=== PATIENT | female | born 1975 | race African-American/Black ===

== ENCOUNTER 2020-04-07 11:49 | Emergency (ER) | payer MEDICAID ==
[~2020-04-07] VITALS: Ht 160 cm; Wt 111.6 kg
[~2020-04-07 11:49] MED LIST: LISI40TA11; METF-370
[2020-04-07] MEDS ORDERED: cloNIDine HCL 0.1 MG TAB ONE (12:13)
[2020-04-07] MEDS ORDERED: cloNIDine HCL 0.1 MG TAB PO ONE ×2 (12:30→14:15)
[2020-04-07 15:10] VITALS: BP 165/102
== END 2020-04-07 15:22 | disposition home or self-care (01) ==
LOC: ER 11:49
DX: I10 Essential (primary) hypertension (principal); F17.210 Nicotine dependence, cigarettes, uncomplicated; J45.909 Unspecified asthma, uncomplicated; E11.9 Type 2 diabetes mellitus without complications; Z48.01 Encounter for change or removal of surgical wound dressing; Z91.19 Patient's noncompliance with other medical treatment and regimen
CPT/HCPCS: 93005

== ENCOUNTER 2021-04-24 11:20 | Emergency (ER) | payer MEDICAID ==
[~2021-04-24] VITALS: Ht 160 cm; Wt 105.2 kg
[2021-04-24 11:29] VITALS: BP 191/125
[2021-04-24 12:46] LABS: Basophils # (auto) 0.2 10 ^3/uL (0-0.2); Basophils % (auto) 1.3 % (0.0-2.0); Eosinophils # (auto) 0.2 10 ^3/uL (0-0.8); Eosinophils % (auto) 1.3 % (0.0-7.0); Hematocrit 43.7 % (36.0-46.0); Hemoglobin 14.6 g/dL (12.2-16.2); Lymphocytes # (auto) 4.6 10 ^3/uL (0.4-5.4); Lymphocytes % (auto) 38.8 % (10.0-50.0); Mean Corpuscular Hemoglobin 28.2 pg (28.0-32.0); Mean Corpuscular Hgb Conc. 33.4 g/dL (32.0-36.0); Mean Corpuscular Volume 84.3 fL (80.0-100.0); Monocytes # (auto) 0.7 10 ^3/uL (0-1.3); Monocytes % (auto) 6.2 % (0.0-12.0); Neutrophils # (auto) 6.2 10 ^3/uL (1.6-8.6); Neutrophils % (auto) 52.4 % (37.0-80.0); Nucleated Red Blood Cells % 0.2 %; Red Blood Cells 5.18 10^6/uL (4.0-5.20); Red Cell Distribution Width 13.2 % (11.8-14.3); White Blood Cell 11.8 10^3/uL (4.4-10.8)
[2021-04-24 13:06] LABS: Albumin 3.3 g/dL (3.4-5.0); Potassium 3.9 mmol/L (3.5-5.1)
[2021-04-24 13:14] LABS: BUN/Creatinine Ratio 11.4; Bilirubin, Total 0.4 mg/dL (0.2-1.0); Total Protein 7.6 g/dL (6.4-8.2)
== END 2021-04-24 14:42 | disposition home or self-care (01) ==
LOC: ER 11:20
DX: R51.9 Headache, unspecified (principal); I16.0 Hypertensive urgency; I10 Essential (primary) hypertension; E11.65 Type 2 diabetes mellitus with hyperglycemia; J45.909 Unspecified asthma, uncomplicated; F17.210 Nicotine dependence, cigarettes, uncomplicated; F12.10 Cannabis abuse, uncomplicated; E44.1 Mild protein-calorie malnutrition; Z68.41 Body mass index [BMI] 40.0-44.9, adult
CPT/HCPCS: 36415; 70450; 71045; 80053; 85025

== ENCOUNTER 2021-09-28 13:56 | Inpatient (IN) | payer MEDICAID ==
[~2021-09-28] VITALS: Ht 162.6 cm; Wt 100.0 kg
[2021-09-28] MEDS ORDERED: ASPirin 81 mg TAB PO ONE (14:15)
[2021-09-28] MEDS ORDERED: amLODIPine BESYLATE 5 MG TAB PO ONE (14:15)
[2021-09-28 14:38] LABS: Basophils # (auto) 0.1 10 ^3/uL (0-0.2); Basophils % (auto) 1.2 % (0.0-2.0); Eosinophils # (auto) 0.1 10 ^3/uL (0-0.8); Eosinophils % (auto) 0.9 % (0.0-7.0); Hematocrit 39.1 % (36.0-46.0); Hemoglobin 13.4 g/dL (12.2-16.2); Lymphocytes # (auto) 3.5 10 ^3/uL (0.4-5.4); Lymphocytes % (auto) 33.6 % (10.0-50.0); Mean Corpuscular Hemoglobin 28.2 pg (28.0-32.0); Mean Corpuscular Hgb Conc. 34.3 g/dL (32.0-36.0); Mean Corpuscular Volume 82.2 fL (80.0-100.0); Monocytes # (auto) 0.5 10 ^3/uL (0-1.3); Monocytes % (auto) 5.2 % (0.0-12.0); Neutrophils # (auto) 6.2 10 ^3/uL (1.6-8.6); Neutrophils % (auto) 59.1 % (37.0-80.0); Nucleated Red Blood Cells % 0.1 %; Red Blood Cells 4.75 10^6/uL (4.0-5.20); Red Cell Distribution Width 13.4 % (11.8-14.3); White Blood Cell 10.5 10^3/uL (4.4-10.8)
[2021-09-28 14:51] LABS: Albumin 3.3 g/dL (3.4-5.0); Calcium 9.4 mg/dL (8.5-10.1); Potassium 3.9 mmol/L (3.5-5.1)
[2021-09-28 14:54] LABS: BUN/Creatinine Ratio 11.7
[2021-09-28 14:56] LABS: Bilirubin, Total 0.3 mg/dL (0.2-1.0); Total Protein 7.1 g/dL (6.4-8.2)
[2021-09-28] MEDS ORDERED: NITROGLYCERIN 0.4 MG SL TAB SL ONE (15:00)
[2021-09-28] MEDS ORDERED: SODIUM CHLORIDE 0.9% 250 ML IV ONE (15:15)
[2021-09-28] MEDS ORDERED: InsuLIN REG 1unit/0.01ml Soln (100units/ml) IV ONE (15:15)
[2021-09-28] MEDS ORDERED: NITROGLYCERIN 50MG/250ML 250 ML IV ONE (16:00)
[2021-09-28] MEDS ORDERED: LORazepam 0.5 MG TAB PO ONE (16:15)
[2021-09-28 17:17] LABS: Urine Bacteria FEW /hpf (None Seen); Urine Blood Negative /uL (Negative); Urine Specific Gravity 1.026 (1.001-1.035); Urine WBC 1 /hpf (0 - 5)
[2021-09-28] MEDS ORDERED: ACETAMINOPHEN 325 MG TAB PO PRN (21:15)
[2021-09-28] MEDS ORDERED: DEXTROSE (50%) 50ML SYRG IV PRN (21:15)
[2021-09-28] MEDS ORDERED: NITROGLYCERIN 0.4 MG SL TAB SL PRN (21:15)
[2021-09-28] MEDS: NITROGLYCERIN 50MG/250ML 250 ML IV SCH (21:49)
[2021-09-28 22:48] LABS: INR 1.03 (0.9-1.15); Partial Thromboplastin Time 24.4 sec (23.6-33.0)
[2021-09-28] MEDS: METOPROLOL TARTRATE 50 MG TAB PO SCH (23:07)
[2021-09-28] MEDS: ATORVASTATIN 20 MG TAB PO SCH (23:07)
[2021-09-29] VITALS (55 sets, daily range): BP systolic 124–182; BP diastolic 67–113
[2021-09-29] MEDS: InsuLIN REG 1unit/0.01ml Soln (100units/ml) SC SCH ×6 (01:55→22:07)
[2021-09-29] MEDS: ACCU-CHEK COMFORT CURVE STRIP VI SCH ×6 (01:56→22:00)
[2021-09-29] MEDS ORDERED: KETOROLAC TROMETH 30 MG/ML 1ML VIAL IV ONE (03:00)
[2021-09-29] MEDS ORDERED: cloNIDine HCL 0.1 MG TAB PO PRN (03:30)
[2021-09-29 05:31] LABS: Basophils # (auto) 0.1 10 ^3/uL (0-0.2); Basophils % (auto) 1.1 % (0.0-2.0); Eosinophils # (auto) 0.1 10 ^3/uL (0-0.8); Eosinophils % (auto) 0.9 % (0.0-7.0); Hematocrit 38.2 % (36.0-46.0); Hemoglobin 13.2 g/dL (12.2-16.2); Lymphocytes # (auto) 3.9 10 ^3/uL (0.4-5.4); Lymphocytes % (auto) 38.5 % (10.0-50.0); Mean Corpuscular Hemoglobin 28.6 pg (28.0-32.0); Mean Corpuscular Hgb Conc. 34.5 g/dL (32.0-36.0); Mean Corpuscular Volume 82.7 fL (80.0-100.0); Monocytes # (auto) 0.5 10 ^3/uL (0-1.3); Monocytes % (auto) 5.4 % (0.0-12.0); Neutrophils # (auto) 5.5 10 ^3/uL (1.6-8.6); Neutrophils % (auto) 54.1 % (37.0-80.0); Nucleated Red Blood Cells % 0.1 %; Red Blood Cells 4.62 10^6/uL (4.0-5.20); Red Cell Distribution Width 13.5 % (11.8-14.3); White Blood Cell 10.2 10^3/uL (4.4-10.8)
[2021-09-29 05:54] LABS: Calcium 8.9 mg/dL (8.5-10.1); Potassium 3.5 mmol/L (3.5-5.1)
[2021-09-29 05:59] LABS: BUN/Creatinine Ratio 11.8; Bilirubin, Total 0.5 mg/dL (0.2-1.0); Total Protein 6.7 g/dL (6.4-8.2)
[2021-09-29] MEDS ORDERED: LISINOPRIL 20 MG TAB PO SCH (10:00)
[2021-09-29] MEDS ORDERED: ENOXAPARIN SOD 40 MG/0.4 ML SYRINGE SC SCH (10:00)
[2021-09-29] MEDS: METOPROLOL TARTRATE 50 MG TAB PO SCH ×2 (10:39→21:58)
[2021-09-29] MEDS: ASPirin 81 mg TAB PO SCH (10:39)
[2021-09-29] MEDS: PANTOPRAZOLE 40 MG TAB PO SCH (10:40)
[2021-09-29] MEDS: ONDANSETRON HCL 4 MG/2 ML VIAL IV PRN ×2 (10:40→19:00)
[2021-09-29] MEDS: FUROSEMIDE 40 MG TAB PO SCH (10:40)
[2021-09-29] MEDS: MORPHINE SULFATE INJECTION 2 MG/ML SYRG IV PRN ×2 (10:41→19:01)
[2021-09-29] MEDS ORDERED: FUROSEMIDE 20 MG TAB PO SCH (14:30)
[2021-09-29] MEDS ORDERED: POTASSIUM CHL 20 Meq TABLET PO SCH (14:30)
[2021-09-29] MEDS ORDERED: amLODIPine BESYLATE 5 MG TAB PO ONE (14:30)
[2021-09-29 15:08] LABS: Cholesterol 243 mg/dL (< 200); HDL Cholesterol 52 mg/dL (40-59); LDL Cholesterol 173 mg/dL (< 100); Triglycerides 106 mg/dL (< 150)
[2021-09-29] MEDS: POTASSIUM CHL 20 Meq TABLET PO SCH (16:22)
[2021-09-29] MEDS: IBUPROFEN 400 MG TAB PO PRN (16:30)
[2021-09-29] MEDS ORDERED: FURO1TAB31 PO (17:02)
[2021-09-29] MEDS ORDERED: HYDR10TA26 PO (17:02)
[2021-09-29] MEDS ORDERED: POTA10TA51 PO (17:02)
[2021-09-29] MEDS ORDERED: MET50T PO (17:02)
[2021-09-29] MEDS ORDERED: OXYC-113 PO (17:02)
[2021-09-29] MEDS: hydrALAZINE HCL 25 MG TAB PO SCH (21:58)
[2021-09-29] MEDS: ATORVASTATIN 20 MG TAB PO SCH (21:58)
[2021-09-29] MEDS: ENOXAPARIN SOD 100 MG/1 ML SYRINGE SC SCH (21:59)
[2021-09-29] MEDS: oxyCODONE HCL 5MG TAB PO PRN (23:45)
[2021-09-30] VITALS (51 sets, daily range): BP systolic 122–178; BP diastolic 69–118
[2021-09-30] MEDS: InsuLIN REG 1unit/0.01ml Soln (100units/ml) SC SCH ×4 (05:30→18:01)
[2021-09-30] MEDS: ACCU-CHEK COMFORT CURVE STRIP VI SCH ×4 (05:40→17:56)
[2021-09-30] MEDS: NITROGLYCERIN 50MG/250ML 250 ML IV SCH (07:58)
[2021-09-30 08:36] LABS: Basophils # (auto) 0.2 10 ^3/uL (0-0.2); Basophils % (auto) 1.6 % (0.0-2.0); Eosinophils # (auto) 0.1 10 ^3/uL (0-0.8); Hematocrit 36.2 % (36.0-46.0); Hemoglobin 12.2 g/dL (12.2-16.2); Lymphocytes # (auto) 3.1 10 ^3/uL (0.4-5.4); Lymphocytes % (auto) 27.9 % (10.0-50.0); Mean Corpuscular Hemoglobin 28.2 pg (28.0-32.0); Mean Corpuscular Hgb Conc. 33.7 g/dL (32.0-36.0); Mean Corpuscular Volume 83.5 fL (80.0-100.0); Monocytes # (auto) 1.3 10 ^3/uL (0-1.3); Monocytes % (auto) 11.5 % (0.0-12.0); Neutrophils # (auto) 6.4 10 ^3/uL (1.6-8.6); Nucleated Red Blood Cells % 0.1 %; Red Blood Cells 4.34 10^6/uL (4.0-5.20); Red Cell Distribution Width 13.4 % (11.8-14.3); White Blood Cell 11.1 10^3/uL (4.4-10.8)
[2021-09-30 08:49] LABS: BUN/Creatinine Ratio 14.1; Calcium 8.6 mg/dL (8.5-10.1); Potassium 3.7 mmol/L (3.5-5.1)
[2021-09-30] MEDS: oxyCODONE HCL 5MG TAB PO PRN (08:55)
[2021-09-30] MEDS ORDERED: amLODIPine BESYLATE 5 MG TAB PO SCH (10:00)
[2021-09-30] MEDS ORDERED: INSULIN LANTUS (GLARGINE) 1 /0.01ml (100units/ml) SC SCH (10:00)
[2021-09-30] MEDS: METOPROLOL TARTRATE 50 MG TAB PO SCH (10:36)
[2021-09-30] MEDS: PANTOPRAZOLE 40 MG TAB PO SCH (10:37)
[2021-09-30] MEDS: FUROSEMIDE 40 MG TAB PO SCH (10:37)
[2021-09-30] MEDS: POTASSIUM CHL 20 Meq TABLET PO SCH (10:37)
[2021-09-30] MEDS: ENOXAPARIN SOD 100 MG/1 ML SYRINGE SC SCH (10:39)
[2021-09-30] MEDS: ASPirin 81 mg TAB PO SCH (10:39)
[2021-09-30] MEDS: IBUPROFEN 400 MG TAB PO PRN (10:51)
[2021-09-30] MEDS: hydrALAZINE HCL 25 MG TAB PO SCH (11:37)
[2021-09-30] MEDS ORDERED: hydrALAZINE HCL 25 MG TAB PO SCH (15:30)
[2021-09-30] MEDS ORDERED: INSREGI SC (15:31)
[2021-09-30] MEDS ORDERED: POTA-220 PO (15:31)
[2021-09-30] MEDS ORDERED: AML5T PO (15:31)
[2021-09-30] MEDS ORDERED: HYDR25TA87 PO (15:31)
[2021-09-30] MEDS ORDERED: INSLANTI SC (15:31)
[2021-09-30] MEDS ORDERED: ASPI1CHW15 PO (15:31)
[2021-09-30] MEDS ORDERED: ISOS10TA2 PO (15:31)
[2021-09-30] MEDS ORDERED: MET50T PO (15:31)
[2021-09-30] MEDS ORDERED: FURO1TAB31 PO (15:31)
[2021-09-30] MEDS ORDERED: ISOSORBIDE DINITRATE 10 MG TAB PO SCH (18:00)
== END 2021-09-30 19:35 | disposition home or self-care (01) | DRG 190 ==
LOC: ER 13:56 → TELE 21:42 → ICU WEST 09-29 07:40
PROVIDERS: ADMIT Nurse Practitioner; ATTEND Internal Medicine
DX: I21.4 Non-ST elevation (NSTEMI) myocardial infarction (principal); E11.65 Type 2 diabetes mellitus with hyperglycemia; E66.01 Morbid (severe) obesity due to excess calories; F12.90 Cannabis use, unspecified, uncomplicated; F17.210 Nicotine dependence, cigarettes, uncomplicated; I10 Essential (primary) hypertension; I16.1 Hypertensive emergency; F41.9 Anxiety disorder, unspecified; Z20.822 Contact with and (suspected) exposure to COVID-19; I48.0 Paroxysmal atrial fibrillation; J45.909 Unspecified asthma, uncomplicated; Z68.38 Body mass index [BMI] 38.0-38.9, adult; Z91.14 Patient's other noncompliance with medication regimen; Z79.82 Long term (current) use of aspirin; Z88.1 Allergy status to other antibiotic agents
CPT/HCPCS: 36415; 71045; 80048; 80053; 80061; 81001; 82962; 83880; 84484; 85025; 85379; 85610; 85730; 87081; 93005; 93306; 96361; 96365; 96367; 96375; G0378; J1815; J1885; J2405

== ENCOUNTER 2021-10-14 21:53 | Emergency (ER) | payer MEDICAID ==
[~2021-10-14] VITALS: Ht 160 cm; Wt 105.7 kg
[~2021-10-14 21:53] MED LIST changes: +AML5T PO; +ASPI1CHW15 PO; +FURO1TAB31 PO; +HYDR25TA87 PO; +INSLANTI SC; +INSREGI SC; +ISOS10TA2 PO; -LISI40TA11; +MET50T PO; -METF-370; +OXYC-113 PO; +POTA-220 PO
[2021-10-14 22:33] LABS: Basophils # (auto) 0.1 10 ^3/uL (0-0.2); Basophils % (auto) 0.6 % (0.0-2.0); Eosinophils # (auto) 0.2 10 ^3/uL (0-0.8); Eosinophils % (auto) 1.9 % (0.0-7.0); Hematocrit 39.9 % (36.0-46.0); Hemoglobin 13.3 g/dL (12.2-16.2); Lymphocytes # (auto) 3.4 10 ^3/uL (0.4-5.4); Lymphocytes % (auto) 34.9 % (10.0-50.0); Mean Corpuscular Hemoglobin 28.1 pg (28.0-32.0); Mean Corpuscular Hgb Conc. 33.5 g/dL (32.0-36.0); Mean Corpuscular Volume 83.9 fL (80.0-100.0); Monocytes # (auto) 0.6 10 ^3/uL (0-1.3); Monocytes % (auto) 6.3 % (0.0-12.0); Neutrophils # (auto) 5.5 10 ^3/uL (1.6-8.6); Neutrophils % (auto) 56.3 % (37.0-80.0); Nucleated Red Blood Cells % 0.1 %; Red Blood Cells 4.75 10^6/uL (4.0-5.20); Red Cell Distribution Width 13.4 % (11.8-14.3); White Blood Cell 9.7 10^3/uL (4.4-10.8)
[2021-10-14 22:50] LABS: Albumin 3.3 g/dL (3.4-5.0); BUN/Creatinine Ratio 9.8; Calcium 9.5 mg/dL (8.5-10.1); Potassium 3.6 mmol/L (3.5-5.1)
[2021-10-14 22:53] LABS: Bilirubin, Total 0.2 mg/dL (0.2-1.0); Total Protein 7.5 g/dL (6.4-8.2)
[2021-10-15] MEDS ORDERED: IOHEXOL 300 MG/ML 100ML BOTTLE IJ ONE (01:11)
[2021-10-15] MEDS ORDERED: KETOROLAC TROMETH 30 MG/ML 1ML VIAL IV ONE (01:15)
[2021-10-15 05:11] VITALS: BP 153/93
== END 2021-10-15 05:46 | disposition home or self-care (01) ==
LOC: ER 21:53
DX: R51.9 Headache, unspecified (principal); R68.84 Jaw pain; I10 Essential (primary) hypertension; E11.9 Type 2 diabetes mellitus without complications; I48.91 Unspecified atrial fibrillation; J45.909 Unspecified asthma, uncomplicated; F17.210 Nicotine dependence, cigarettes, uncomplicated; Z79.82 Long term (current) use of aspirin; Z79.4 Long term (current) use of insulin; Z79.899 Other long term (current) drug therapy; Z88.8 Allergy status to other drugs, medicaments and biological substances
CPT/HCPCS: 36415; 70491; 80053; 83880; 84484; 85025; 93005; 96374; 99285; J1885; Q9967

== ENCOUNTER 2021-11-20 06:38 | Day surgery (SDC) | payer MEDICAID ==
[~2021-11-20] VITALS: Ht 162.6 cm; Wt 105.7 kg
[~2021-11-20 06:38] MED LIST changes: +ALPR0.25 PO; +CLON0.1T PO; +FLEC1TAB PO; -INSLANTI SC; -INSREGI SC; +INSUINJ37 SC; -OXYC-113 PO
[2021-11-20] MEDS ORDERED: IODIXANOL 320MG/ML 100ML BTL IV ONE (07:27)
[2021-11-20] MEDS ORDERED: LIDOCAINE 2%HCL (LOCAL ANESTH.) INJ 10ml MDV ONE ×2 (07:27→07:58)
[2021-11-20] MEDS ORDERED: ANGIOMAX 250 MG VIAL IV ONE (08:00)
[2021-11-20] MEDS ORDERED: VERAPAMIL 2.5MG/ML INJ 2ML VIAL IV ONE (08:01)
[2021-11-20] MEDS ORDERED: SODIUM CHL 0.9% 0 ML ONE (08:01)
[2021-11-20] MEDS ORDERED: fentaNYL CITRATE 100 MCG/2 ML VL ONE (08:01)
[2021-11-20] MEDS ORDERED: HEPARIN SODIUM (PORCINE) 5000 UNITS/ML 1ML VIAL ONE (08:01)
[2021-11-20] MEDS ORDERED: MIDAZOLAM HCL 2MG/2ML 2ml VIAL (1mg/ml) ONE (08:01)
[2021-11-20] MEDS ORDERED: hydrALAZINE HCL 20 MG/ML VL ONE (08:33)
[2021-11-20] MEDS ORDERED: LABETALOL HCL 5 MG/ML 4ML SYRINGE IV ONE (09:00)
[2021-11-20] MEDS ORDERED: hydrALAZINE HCL 20 MG/ML VL IV ONE (09:15)
[2021-11-20] MEDS ORDERED: HYDROcodone-ACET 10/325MG TAB PO ONE (10:15)
[2021-11-20] MEDS ORDERED: cloNIDine HCL 0.1 MG TAB PO ONE (12:15)
== END 2021-11-20 14:10 | disposition home or self-care (01) ==
LOC: CATH 06:38
PROVIDERS: ATTEND Internal Medicine
DX: R94.39 Abnormal result of other cardiovascular function study (principal); I25.10 Atherosclerotic heart disease of native coronary artery without angina pectoris; I11.0 Hypertensive heart disease with heart failure; I50.9 Heart failure, unspecified; F41.9 Anxiety disorder, unspecified; E78.5 Hyperlipidemia, unspecified; J45.909 Unspecified asthma, uncomplicated; E11.9 Type 2 diabetes mellitus without complications; Z87.891 Personal history of nicotine dependence; Z79.02 Long term (current) use of antithrombotics/antiplatelets; Z79.82 Long term (current) use of aspirin; Z20.822 Contact with and (suspected) exposure to COVID-19
CPT/HCPCS: 93460; C1751; C1769; C1887; C1894; J0360; J1644; J2001; J2250; J3010; J3490; Q9967; U0003; 99152; 99153

== ENCOUNTER 2022-03-25 12:17 | Emergency (ER) | payer MEDICAID, OTHER ==
[~2022-03-25] VITALS: Ht 162.6 cm; Wt 95.0 kg
[2022-03-25 18:02] VITALS: BP 179/102
[2022-03-25] MEDS ORDERED: KETOROLAC TROMETH 60MG/2ML VIAL IM ONE (18:15)
[2022-03-25] MEDS ORDERED: METOPROLOL TARTRATE 50 MG TAB PO ONE (18:45)
== END 2022-03-25 18:58 | disposition home or self-care (01) ==
LOC: EDBD 12:17 → ER 12:17
DX: M79.10 Myalgia, unspecified site (principal); I10 Essential (primary) hypertension; E11.9 Type 2 diabetes mellitus without complications; I48.91 Unspecified atrial fibrillation; J45.909 Unspecified asthma, uncomplicated; F17.210 Nicotine dependence, cigarettes, uncomplicated; Z79.4 Long term (current) use of insulin; Z79.82 Long term (current) use of aspirin; Z79.899 Other long term (current) drug therapy; Z88.8 Allergy status to other drugs, medicaments and biological substances
CPT/HCPCS: 72070; 72100; 73502; 96372; 99284; J1885

== ENCOUNTER 2022-04-17 15:11 | Inpatient (IN) | payer MEDICAID ==
[~2022-04-17] VITALS: Ht 160 cm; Wt 110.0 kg
[2022-04-17 16:37] LABS: Basophils # (auto) 0.1 10 ^3/uL (0-0.2); Eosinophils # (auto) 0.1 10 ^3/uL (0-0.8); Eosinophils % (auto) 1.3 % (0.0-7.0); Hematocrit 41.5 % (36.0-46.0); Hemoglobin 14.2 g/dL (12.2-16.2); Lymphocytes # (auto) 4.3 10 ^3/uL (0.4-5.4); Mean Corpuscular Hemoglobin 27.6 pg (28.0-32.0); Mean Corpuscular Hgb Conc. 34.3 g/dL (32.0-36.0); Mean Corpuscular Volume 80.5 fL (80.0-100.0); Monocytes # (auto) 0.7 10 ^3/uL (0-1.3); Monocytes % (auto) 6.1 % (0.0-12.0); Neutrophils # (auto) 5.5 10 ^3/uL (1.6-8.6); Neutrophils % (auto) 51.6 % (37.0-80.0); Nucleated Red Blood Cells % 0.1 %; Red Blood Cells 5.16 10^6/uL (4.0-5.20); Red Cell Distribution Width 13.7 % (11.8-14.3); White Blood Cell 10.7 10^3/uL (4.4-10.8)
[2022-04-17 16:53] LABS: Albumin 3.4 g/dL (3.4-5.0); Calcium 9.3 mg/dL (8.5-10.1); Potassium 3.9 mmol/L (3.5-5.1)
[2022-04-17 16:56] LABS: BUN/Creatinine Ratio 12.5
[2022-04-17 17:01] LABS: Bilirubin, Total 0.4 mg/dL (0.2-1.0); Total Protein 7.4 g/dL (6.4-8.2)
[2022-04-17 18:27] LABS: Blood Alcohol < 3.0 mg/dL (0-5)
[2022-04-17] MEDS ORDERED: LORazepam 2MG/ML-1ML VIAL IV PRN (19:00)
[2022-04-17] MEDS ORDERED: ALPRAZolam 0.25 MG TAB PO PRN (19:00)
[2022-04-17] MEDS ORDERED: NITROGLYCERIN 0.4 MG SL TAB SL PRN (22:00)
[2022-04-17] MEDS ORDERED: cloNIDine HCL 0.1 MG TAB PO PRN (22:00)
[2022-04-17] MEDS ORDERED: ONDANSETRON HCL 4 MG/2 ML VIAL IV PRN (22:00)
[2022-04-17] MEDS ORDERED: DEXTROSE (50%) 50ML SYRG IV PRN (22:00)
[2022-04-17] MEDS: ACCU-CHEK COMFORT CURVE STRIP VI SCH (23:03)
[2022-04-17] MEDS: InsuLIN REG 1unit/0.01ml Soln (100units/ml) SC SCH (23:03)
[2022-04-17] MEDS: ENOXAPARIN SOD 100 MG/1 ML SYRINGE SC SCH (23:15)
[2022-04-17] MEDS: hydrALAZINE HCL 25 MG TAB PO SCH (23:15)
[2022-04-17] MEDS: MORPHINE SULFATE INJ 2 MG/ml SYRG IV PRN (23:17)
[2022-04-18] MEDS: MORPHINE SULFATE INJ 2 MG/ml SYRG IV PRN (00:51)
[2022-04-18] MEDS: hydrALAZINE HCL 25 MG TAB PO SCH ×3 (05:39→23:01)
[2022-04-18] MEDS: ISOSORBIDE DINITRATE 10 MG TAB PO SCH ×3 (05:40→18:00)
[2022-04-18 06:55] LABS: Basophils # (auto) 0.1 10 ^3/uL (0-0.2); Basophils % (auto) 0.9 % (0.0-2.0); Eosinophils # (auto) 0 10 ^3/uL (0-0.8); Eosinophils % (auto) 0.2 % (0.0-7.0); Hematocrit 40.7 % (36.0-46.0); Lymphocytes # (auto) 2.6 10 ^3/uL (0.4-5.4); Lymphocytes % (auto) 19.2 % (10.0-50.0); Mean Corpuscular Hemoglobin 27.6 pg (28.0-32.0); Mean Corpuscular Hgb Conc. 34.5 g/dL (32.0-36.0); Mean Corpuscular Volume 80.1 fL (80.0-100.0); Monocytes # (auto) 0.4 10 ^3/uL (0-1.3); Neutrophils # (auto) 10.5 10 ^3/uL (1.6-8.6); Neutrophils % (auto) 76.7 % (37.0-80.0); Red Blood Cells 5.08 10^6/uL (4.0-5.20); Red Cell Distribution Width 13.9 % (11.8-14.3); White Blood Cell 13.7 10^3/uL (4.4-10.8)
[2022-04-18] MEDS: ACCU-CHEK COMFORT CURVE STRIP VI SCH ×4 (07:05→23:08)
[2022-04-18] MEDS: InsuLIN REG 1unit/0.01ml Soln (100units/ml) SC SCH ×4 (07:05→23:16)
[2022-04-18 07:31] LABS: Potassium 3.3 mmol/L (3.5-5.1)
[2022-04-18 07:41] LABS: Albumin 3.5 g/dL (3.4-5.0); BUN/Creatinine Ratio 17.9; Bilirubin, Total 0.7 mg/dL (0.2-1.0); Calcium 9.4 mg/dL (8.5-10.1); Total Protein 7.8 g/dL (6.4-8.2)
[2022-04-18] MEDS: ENOXAPARIN SOD 100 MG/1 ML SYRINGE SC SCH ×2 (09:51→23:01)
[2022-04-18] MEDS: PANTOPRAZOLE 40 MG TAB PO SCH (09:52)
[2022-04-18] MEDS: FUROSEMIDE 40 MG TAB PO SCH (09:52)
[2022-04-18] MEDS: ASPirin 81 mg TAB PO SCH (09:52)
[2022-04-18] MEDS: amLODIPine BESYLATE 5 MG TAB PO SCH (09:52)
[2022-04-18] MEDS: ATORVASTATIN 20 MG TAB PO SCH (09:53)
[2022-04-18 20:45] LABS: Alcohol, Urine < 3.0 mg/dL (0-10); Amphetamine Screen, Urine NEGATIVE (NEGATIVE); Benzodiazephine Screen, Urine NEGATIVE (NEGATIVE); Cannabinoid Screen, Urine POSITIVE (NEGATIVE); Cocaine Screen, Urine NEGATIVE (NEGATIVE); Opiate Scree,Urine NEGATIVE (NEGATIVE); Phencyclidine Screen, Urine NEGATIVE (NEGATIVE)
[2022-04-18 21:00] LABS: Urine Bacteria FEW /hpf (None Seen); Urine Hyaline Cast FEW /lpf (0 - 2); Urine WBC 1 /hpf (0 - 5)
[2022-04-18 21:04] LABS: Urine Specific Gravity 1.015 (1.001-1.035)
[2022-04-18 21:05] LABS: Urine Blood Negative /uL (Negative)
[2022-04-18 21:14] LABS: Barbiturate Scree,Urine NEGATIVE (NEGATIVE)
[2022-04-18 21:39] VITALS: BP 139/85
[2022-04-18] MEDS ORDERED: QUET1TAB11 PO (22:01)
[2022-04-18] MEDS ORDERED: SERT50TA19 PO (22:01)
[2022-04-18] MEDS ORDERED: HYDR-3682 PO (22:02)
[2022-04-18] MEDS ORDERED: KETOROLAC TROMETH 30 MG/ML 1ML VIAL IV ONE (22:30)
[2022-04-19 05:00] VITALS: BP 138/77
[2022-04-19] MEDS: ISOSORBIDE DINITRATE 10 MG TAB PO SCH ×3 (06:26→18:11)
[2022-04-19] MEDS: hydrALAZINE HCL 25 MG TAB PO SCH ×3 (06:27→21:28)
[2022-04-19] MEDS: ACCU-CHEK COMFORT CURVE STRIP VI SCH ×4 (06:34→21:35)
[2022-04-19] MEDS: InsuLIN REG 1unit/0.01ml Soln (100units/ml) SC SCH ×4 (06:35→21:42)
[2022-04-19 09:05] VITALS: BP 137/87
[2022-04-19] MEDS: ASPirin 81 mg TAB PO SCH (09:23)
[2022-04-19] MEDS: FUROSEMIDE 40 MG TAB PO SCH (09:24)
[2022-04-19] MEDS: ATORVASTATIN 20 MG TAB PO SCH (09:25)
[2022-04-19] MEDS: PANTOPRAZOLE 40 MG TAB PO SCH (09:25)
[2022-04-19] MEDS: amLODIPine BESYLATE 5 MG TAB PO SCH (09:25)
[2022-04-19] MEDS: ENOXAPARIN SOD 100 MG/1 ML SYRINGE SC SCH ×2 (09:26→21:28)
[2022-04-19 13:00] VITALS: BP 154/92
[2022-04-19] MEDS ORDERED: HYDROcodone-ACET 5/325MG TAB PO PRN (16:00)
[2022-04-19 16:11] VITALS: BP 158/86
[2022-04-19] MEDS: traMADol HCL 50 MG TAB PO PRN (20:50)
[2022-04-19 22:00] VITALS: BP 165/91
[2022-04-20 02:48] LABS: INR 0.95 (0.9-1.15); Partial Thromboplastin Time 29.5 sec (24.6-33.4)
[2022-04-20 05:00] VITALS: BP 164/86
[2022-04-20] MEDS: hydrALAZINE HCL 25 MG TAB PO SCH ×3 (06:17→21:58)
[2022-04-20] MEDS: ISOSORBIDE DINITRATE 10 MG TAB PO SCH ×3 (06:19→18:12)
[2022-04-20] MEDS: ACCU-CHEK COMFORT CURVE STRIP VI SCH ×4 (06:22→21:58)
[2022-04-20] MEDS: InsuLIN REG 1unit/0.01ml Soln (100units/ml) SC SCH ×4 (06:28→22:02)
[2022-04-20 09:00] VITALS: BP 169/89
[2022-04-20] MEDS: ASPirin 81 mg TAB PO SCH (09:18)
[2022-04-20] MEDS: ATORVASTATIN 20 MG TAB PO SCH (09:19)
[2022-04-20] MEDS: FUROSEMIDE 40 MG TAB PO SCH (09:19)
[2022-04-20] MEDS: amLODIPine BESYLATE 5 MG TAB PO SCH (09:19)
[2022-04-20] MEDS: PANTOPRAZOLE 40 MG TAB PO SCH (09:19)
[2022-04-20] MEDS: ENOXAPARIN SOD 100 MG/1 ML SYRINGE SC SCH ×2 (09:20→21:58)
[2022-04-20] MEDS: traMADol HCL 50 MG TAB PO PRN ×2 (10:03→22:10)
[2022-04-20] MEDS ORDERED: LIDOCAINE VISCOUS 2% 15ML UD MT ONE (10:45)
[2022-04-20] MEDS ORDERED: fentaNYL CITRATE 100 MCG/2 ML VL IV ONE (10:45)
[2022-04-20] MEDS ORDERED: MIDAZOLAM HCL 2MG/2ML 2ml VIAL (1mg/ml) IV ONE (10:45)
[2022-04-20] MEDS ORDERED: diphenhdrAMINE HCL 50 MG/1 ML VL IV ONE (10:45)
[2022-04-20] MEDS ORDERED: hydrALAZINE HCL 20 MG/ML VL IV ONE (12:30)
[2022-04-20 16:52] VITALS: BP 154/79
[2022-04-20 20:10] VITALS: BP 150/77
[2022-04-21] MEDS: hydrALAZINE HCL 25 MG TAB PO SCH ×2 (05:34→14:05)
[2022-04-21] MEDS: ISOSORBIDE DINITRATE 10 MG TAB PO SCH ×3 (05:34→18:00)
[2022-04-21 05:55] VITALS: BP 169/95
[2022-04-21] MEDS: ACCU-CHEK COMFORT CURVE STRIP VI SCH ×3 (06:21→17:00)
[2022-04-21] MEDS: InsuLIN REG 1unit/0.01ml Soln (100units/ml) SC SCH ×3 (06:23→17:00)
[2022-04-21 09:00] VITALS: BP 147/94
[2022-04-21] MEDS: ASPirin 81 mg TAB PO SCH (10:06)
[2022-04-21] MEDS: ATORVASTATIN 20 MG TAB PO SCH (10:06)
[2022-04-21] MEDS: FUROSEMIDE 40 MG TAB PO SCH (10:06)
[2022-04-21] MEDS: amLODIPine BESYLATE 5 MG TAB PO SCH (10:06)
[2022-04-21] MEDS: PANTOPRAZOLE 40 MG TAB PO SCH (10:06)
[2022-04-21] MEDS: ENOXAPARIN SOD 100 MG/1 ML SYRINGE SC SCH (10:07)
[2022-04-21] MEDS: traMADol HCL 50 MG TAB PO PRN (10:54)
[2022-04-21] MEDS ORDERED: APIX5TAB PO (11:03)
[2022-04-21] MEDS ORDERED: ATOR20TA50 PO (11:04)
[2022-04-21] MEDS ORDERED: DOCUSATE SOD 100 MG CAP PO PRN (11:15)
[2022-04-21] MEDS ORDERED: SENNA 8.6 MG TAB PO ONE (11:15)
[2022-04-21] MEDS ORDERED: LORazepam 2MG/ML-1ML VIAL IV PRN (11:15)
[2022-04-21 13:00] VITALS: BP 180/105
[2022-04-21 15:39] VITALS: BP 153/109
[2022-04-21] MEDS ORDERED: APIXABAN 5 MG TAB PO SCH (19:00)
== END 2022-04-21 18:10 | disposition home health service (06) | DRG 45 ==
LOC: ER 15:11 → TELE 21:58 → TELE-CENTR 04-18 20:47
PROVIDERS: ADMIT Nurse Practitioner; ATTEND Internal Medicine
PROC: B24BZZ4 Ultrasonography of Heart with Aorta, Transesophageal (ICD-10-PCS; principal; 2022-04-20)
DX: I63.9 Cerebral infarction, unspecified (principal); I11.0 Hypertensive heart disease with heart failure; I50.32 Chronic diastolic (congestive) heart failure; E11.65 Type 2 diabetes mellitus with hyperglycemia; E66.01 Morbid (severe) obesity due to excess calories; R29.810 Facial weakness; F41.9 Anxiety disorder, unspecified; E78.5 Hyperlipidemia, unspecified; F17.210 Nicotine dependence, cigarettes, uncomplicated; Z20.822 Contact with and (suspected) exposure to COVID-19; I25.10 Atherosclerotic heart disease of native coronary artery without angina pectoris; I48.91 Unspecified atrial fibrillation; J45.909 Unspecified asthma, uncomplicated; Z68.41 Body mass index [BMI] 40.0-44.9, adult; Z88.1 Allergy status to other antibiotic agents; Z88.8 Allergy status to other drugs, medicaments and biological substances; Z79.01 Long term (current) use of anticoagulants; Z79.4 Long term (current) use of insulin; Z79.899 Other long term (current) drug therapy; Z82.49 Family history of ischemic heart disease and other diseases of the circulatory system; Z83.3 Family history of diabetes mellitus; Z86.73 Personal history of transient ischemic attack (TIA), and cerebral infarction without residual deficits; Z90.710 Acquired absence of both cervix and uterus; Z71.3 Dietary counseling and surveillance
CPT/HCPCS: 36415; 70450; 70551; 80053; 80307; 80320; 81001; 82962; 83036; 83735; 84484; 84702; 85025; 85610; 85730; 87426; 93005; 93306; 93312; 93886; 96372; 96374; 96375; 97163; 99152; G0378; J1815; J1885; J2250

== ENCOUNTER 2022-08-07 13:37 | Inpatient (IN) | payer MEDICAID ==
[~2022-08-07] VITALS: Ht 162.6 cm; Wt 117.5 kg
[~2022-08-07 13:37] MED LIST changes: +APIX5TAB PO; +ATOR20TA50 PO; +HYDR-3682 PO; +QUET1TAB11 PO; +SERT50TA19 PO
[2022-08-07] MEDS ORDERED: LORazepam 2MG/ML-1ML VIAL IV ONE (14:00)
[2022-08-07 14:15] LABS: Basophils # (auto) 0.1 10 ^3/uL (0-0.2); Basophils % (auto) 1.2 % (0.0-2.0); Eosinophils # (auto) 0.1 10 ^3/uL (0-0.8); Eosinophils % (auto) 1.3 % (0.0-7.0); Hematocrit 40.1 % (36.0-46.0); Hemoglobin 13.2 g/dL (12.2-16.2); Lymphocytes # (auto) 3.1 10 ^3/uL (0.4-5.4); Lymphocytes % (auto) 34.8 % (10.0-50.0); Mean Corpuscular Hemoglobin 27.7 pg (28.0-32.0); Mean Corpuscular Hgb Conc. 32.9 g/dL (32.0-36.0); Mean Corpuscular Volume 84.2 fL (80.0-100.0); Monocytes # (auto) 0.6 10 ^3/uL (0-1.3); Monocytes % (auto) 7.1 % (0.0-12.0); Neutrophils % (auto) 55.6 % (37.0-80.0); Nucleated Red Blood Cells % 0.1 %; Red Blood Cells 4.76 10^6/uL (4.0-5.20); Red Cell Distribution Width 14.3 % (11.8-14.3)
[2022-08-07 14:31] LABS: Albumin 3.3 g/dL (3.4-5.0); Calcium 9.1 mg/dL (8.5-10.1); Magnesium 2.1 mg/dL (1.6-2.6); Potassium 3.8 mmol/L (3.5-5.1)
[2022-08-07 14:40] LABS: BUN/Creatinine Ratio 8.4; Bilirubin, Total 0.2 mg/dL (0.2-1.0); Total Protein 6.8 g/dL (6.4-8.2)
[2022-08-07] MEDS ORDERED: ENOXAPARIN SOD 100 MG/1 ML SYRINGE SC ONE (16:00)
[2022-08-07] MEDS ORDERED: NITROGLYCERIN 0.4 MG SL TAB SL PRN (18:00)
[2022-08-07] MEDS ORDERED: ACETAMINOPHEN 325 MG TAB PO PRN (18:00)
[2022-08-07] MEDS ORDERED: MORPHINE SULFATE INJ 2 MG/ml SYRG IV PRN (18:00)
[2022-08-07] MEDS ORDERED: HYDROcodone-ACET 5/325MG TAB PO PRN (18:00)
[2022-08-07] MEDS ORDERED: ONDANSETRON HCL 4 MG/2 ML VIAL IV PRN (18:00)
[2022-08-07] MEDS: MORPHINE SULFATE INJ 2 MG/ml SYRG IV PRN (18:48)
[2022-08-08] VITALS (10 sets, daily range): BP systolic 115–167; BP diastolic 76–113
[2022-08-08] MEDS: ATORVASTATIN 20 MG TAB PO SCH ×2 (01:19→22:41)
[2022-08-08] MEDS: MORPHINE SULFATE INJ 2 MG/ml SYRG IV PRN ×3 (01:59→22:42)
[2022-08-08 03:41] LABS: Urine Bacteria NONE SEEN /hpf (None Seen); Urine Blood Negative /uL (Negative); Urine Specific Gravity 1.013 (1.001-1.035); Urine WBC 1 /hpf (0 - 5)
[2022-08-08] MEDS ORDERED: ENOXAPARIN SOD 120 MG/0.8 ML SYRINGE SC SCH (05:00)
[2022-08-08] MEDS ORDERED: DEXTROSE (50%) 50ML SYRG IV PRN ×2 (06:00→07:15)
[2022-08-08] MEDS: hydrALAZINE HCL 10 MG TAB PO PRN ×2 (06:10→12:18)
[2022-08-08] MEDS ORDERED: InsuLIN REG 1unit/0.01ml Soln (100units/ml) SC SCH ×2 (07:00→22:00)
[2022-08-08] MEDS ORDERED: ACCU-CHEK COMFORT CURVE STRIP VI SCH (07:00)
[2022-08-08] MEDS: ACCU-CHEK COMFORT CURVE STRIP VI SCH ×4 (07:14→22:00)
[2022-08-08] MEDS: InsuLIN REG 1unit/0.01ml Soln (100units/ml) SC SCH ×4 (07:14→22:59)
[2022-08-08 07:36] LABS: Basophils # (auto) 0.1 10 ^3/uL (0-0.2); Basophils % (auto) 0.7 % (0.0-2.0); Eosinophils # (auto) 0.2 10 ^3/uL (0-0.8); Eosinophils % (auto) 1.9 % (0.0-7.0); Hematocrit 39.5 % (36.0-46.0); Hemoglobin 13.6 g/dL (12.2-16.2); Lymphocytes # (auto) 5.3 10 ^3/uL (0.4-5.4); Lymphocytes % (auto) 49.5 % (10.0-50.0); Mean Corpuscular Hgb Conc. 34.3 g/dL (32.0-36.0); Mean Corpuscular Volume 81.5 fL (80.0-100.0); Monocytes # (auto) 0.6 10 ^3/uL (0-1.3); Monocytes % (auto) 5.9 % (0.0-12.0); Neutrophils # (auto) 4.5 10 ^3/uL (1.6-8.6); Nucleated Red Blood Cells % 0.6 %; Red Blood Cells 4.85 10^6/uL (4.0-5.20); Red Cell Distribution Width 14.6 % (11.8-14.3); White Blood Cell 10.8 10^3/uL (4.4-10.8)
[2022-08-08 07:57] LABS: Calcium 8.6 mg/dL (8.5-10.1); Potassium 3.2 mmol/L (3.5-5.1)
[2022-08-08 08:01] LABS: BUN/Creatinine Ratio 12.3; Bilirubin, Total 0.4 mg/dL (0.2-1.0); Total Protein 6.7 g/dL (6.4-8.2)
[2022-08-08] MEDS: ASPirin 81 mg TAB PO SCH (09:41)
[2022-08-08] MEDS: APIXABAN 5 MG TAB PO SCH (22:42)
[2022-08-08] MEDS: cloNIDine HCL 0.1 MG TAB PO SCH (22:42)
[2022-08-08] MEDS: MUPIROCIN 2% OINT 15gm or 22gm FOR MRSA NARES EACHNOSTRI SCH (22:43)
[2022-08-08] MEDS: METOPROLOL TARTRATE 25 MG TAB PO SCH (22:44)
[2022-08-08] MEDS ORDERED: DOCUSATE SOD 100 MG CAP PO PRN (22:45)
[2022-08-08] MEDS ORDERED: ALBUTEROL SULF 2.5 MG/0.5ML(0.5%) NEB SOLN NEB PRN (22:45)
[2022-08-09] MEDS: hydrALAZINE HCL 10 MG TAB PO PRN ×2 (00:26→08:28)
[2022-08-09 05:00] VITALS: BP 117/57
[2022-08-09] MEDS: MORPHINE SULFATE INJ 2 MG/ml SYRG IV PRN ×2 (05:12→14:57)
[2022-08-09] MEDS: InsuLIN REG 1unit/0.01ml Soln (100units/ml) SC SCH ×3 (06:04→16:55)
[2022-08-09] MEDS: ACCU-CHEK COMFORT CURVE STRIP VI SCH ×3 (06:10→16:55)
[2022-08-09 08:00] VITALS: BP 164/94
[2022-08-09 09:51] LABS: Hepatitis B Surface Antibody Positive (Negative)
[2022-08-09] MEDS: ASPirin 81 mg TAB PO SCH (10:52)
[2022-08-09] MEDS: cloNIDine HCL 0.1 MG TAB PO SCH (10:53)
[2022-08-09] MEDS: METOPROLOL TARTRATE 25 MG TAB PO SCH (10:53)
[2022-08-09] MEDS: APIXABAN 5 MG TAB PO SCH (10:53)
[2022-08-09] MEDS: MUPIROCIN 2% OINT 15gm or 22gm FOR MRSA NARES EACHNOSTRI SCH (10:54)
[2022-08-09 11:51] LABS: Hepatitis C Antibody Negative (Negative)
[2022-08-09 12:00] VITALS: BP 157/88
[2022-08-09 16:00] VITALS: BP 132/80
[2022-08-09 16:14] VITALS: BP 132/80
== END 2022-08-09 19:40 | disposition home or self-care (01) | DRG 198 ==
LOC: ER 13:37 → EDBD 13:37 → TELE 18:07 → TELE-EAST 23:31
PROVIDERS: ADMIT Internal Medicine; ATTEND Internal Medicine
DX: R07.9 Chest pain, unspecified (principal); I25.10 Atherosclerotic heart disease of native coronary artery without angina pectoris; E11.9 Type 2 diabetes mellitus without complications; E66.9 Obesity, unspecified; I10 Essential (primary) hypertension; Z68.41 Body mass index [BMI] 40.0-44.9, adult; F41.9 Anxiety disorder, unspecified; F17.210 Nicotine dependence, cigarettes, uncomplicated; I48.91 Unspecified atrial fibrillation; J45.909 Unspecified asthma, uncomplicated; Z81.8 Family history of other mental and behavioral disorders; Z83.3 Family history of diabetes mellitus; Z86.73 Personal history of transient ischemic attack (TIA), and cerebral infarction without residual deficits; Z90.710 Acquired absence of both cervix and uterus; Z88.8 Allergy status to other drugs, medicaments and biological substances
CPT/HCPCS: 36415; 71045; 80053; 81001; 82010; 82962; 83036; 83735; 84484; 85025; 86706; 86803; 87081; 87426; 93005; 93306; 96372; 96374; G0378; J1815

== ENCOUNTER 2022-09-29 00:51 | Inpatient (IN) | payer MEDICAID ==
[~2022-09-29] VITALS: Ht 162.6 cm; Wt 115.7 kg
[~2022-09-29 00:51] MED LIST changes: -ALPR0.25 PO; -AML5T PO; -CLON0.1T PO; -FLEC1TAB PO; -FURO1TAB31 PO; -HYDR-3682 PO; -HYDR25TA87 PO; -ISOS10TA2 PO; -POTA-220 PO; -QUET1TAB11 PO; -SERT50TA19 PO
[2022-09-29 01:57] LABS: Basophils # (auto) 0 10 ^3/uL (0-0.2); Basophils % (auto) 0.6 % (0.0-2.0); Eosinophils # (auto) 0.1 10 ^3/uL (0-0.8); Eosinophils % (auto) 1.2 % (0.0-7.0); Hematocrit 39.7 % (36.0-46.0); Hemoglobin 13.3 g/dL (12.2-16.2); Lymphocytes # (auto) 3.2 10 ^3/uL (0.4-5.4); Lymphocytes % (auto) 38.6 % (10.0-50.0); Mean Corpuscular Hemoglobin 27.1 pg (28.0-32.0); Mean Corpuscular Hgb Conc. 33.5 g/dL (32.0-36.0); Mean Corpuscular Volume 80.7 fL (80.0-100.0); Monocytes # (auto) 0.6 10 ^3/uL (0-1.3); Monocytes % (auto) 7.3 % (0.0-12.0); Neutrophils # (auto) 4.3 10 ^3/uL (1.6-8.6); Neutrophils % (auto) 52.3 % (37.0-80.0); Nucleated Red Blood Cells % 0.1 %; Red Blood Cells 4.91 10^6/uL (4.0-5.20); Red Cell Distribution Width 13.8 % (11.8-14.3); White Blood Cell 8.2 10^3/uL (4.4-10.8)
[2022-09-29 02:11] LABS: INR 0.97 (0.9-1.15); Partial Thromboplastin Time 25.1 sec (24.6-33.4)
[2022-09-29 02:26] LABS: Potassium 3.8 mmol/L (3.5-5.1)
[2022-09-29 02:29] LABS: Bilirubin, Total 0.3 mg/dL (0.2-1.0); Total Protein 7.2 g/dL (6.4-8.2)
[2022-09-29 02:30] LABS: BUN/Creatinine Ratio 11.6 (10.0-20.0)
[2022-09-29] MEDS ORDERED: MORPHINE SULFATE 4 MG/ML SYR/VIAL IV ONE (03:15)
[2022-09-29] MEDS ORDERED: ONDANSETRON HCL 4 MG/2 ML VIAL IV ONE (03:15)
[2022-09-29] MEDS ORDERED: InsuLIN REG 1unit/0.01ml Soln (100units/ml) IV ONE (03:45)
[2022-09-29] MEDS ORDERED: LACTATED RINGER'S 1,000 ML IV ONE (03:45)
[2022-09-29] MEDS ORDERED: HEPARIN DRIP/D5W 100UNITS/ML 250 ML IV SCH (03:45)
[2022-09-29] MEDS ORDERED: HEPARIN SODIUM (PORCINE) 5000 UNITS/ML 1ML VIAL IV ONE (03:45)
[2022-09-29] MEDS ORDERED: DOCUSATE SOD 100 MG CAP PO PRN (05:00)
[2022-09-29] MEDS ORDERED: HYDROcodone-ACET 5/325MG TAB PO PRN (05:00)
[2022-09-29] MEDS ORDERED: DEXTROSE (50%) 50ML SYRG IV PRN (05:00)
[2022-09-29] MEDS ORDERED: MORPHINE SULFATE INJ 2 MG/ml SYRG IV PRN (05:00)
[2022-09-29] MEDS ORDERED: NITROGLYCERIN 0.4 MG SL TAB SL PRN (05:00)
[2022-09-29] MEDS ORDERED: ACETAMINOPHEN 325 MG TAB PO PRN (05:00)
[2022-09-29 05:06] LABS: Basophils # (auto) 0.1 10 ^3/uL (0-0.2); Basophils % (auto) 0.7 % (0.0-2.0); Eosinophils # (auto) 0.1 10 ^3/uL (0-0.8); Eosinophils % (auto) 1.2 % (0.0-7.0); Hematocrit 39.5 % (36.0-46.0); Hemoglobin 13.1 g/dL (12.2-16.2); Lymphocytes # (auto) 3.7 10 ^3/uL (0.4-5.4); Lymphocytes % (auto) 42.6 % (10.0-50.0); Mean Corpuscular Hemoglobin 27.2 pg (28.0-32.0); Mean Corpuscular Volume 82.5 fL (80.0-100.0); Monocytes # (auto) 0.5 10 ^3/uL (0-1.3); Monocytes % (auto) 5.9 % (0.0-12.0); Neutrophils # (auto) 4.3 10 ^3/uL (1.6-8.6); Neutrophils % (auto) 49.6 % (37.0-80.0); Nucleated Red Blood Cells % 0.2 %; Red Cell Distribution Width 13.5 % (11.8-14.3); White Blood Cell 8.6 10^3/uL (4.4-10.8)
[2022-09-29 05:14] LABS: Albumin 2.9 g/dL (3.4-5.0); Calcium 8.8 mg/dL (8.5-10.1); Potassium 4.4 mmol/L (3.5-5.1)
[2022-09-29 05:22] LABS: Bilirubin, Total 0.3 mg/dL (0.2-1.0); Total Protein 6.5 g/dL (6.4-8.2)
[2022-09-29 06:43] LABS: BUN/Creatinine Ratio 16.7 (10.0-20.0)
[2022-09-29] MEDS: SODIUM CHLORIDE 0.9% 1,000 ML IV SCH ×2 (07:11→23:22)
[2022-09-29] MEDS: MORPHINE SULFATE INJ 2 MG/ml SYRG IV PRN ×2 (08:10→20:33)
[2022-09-29] MEDS: ONDANSETRON HCL 4 MG/2 ML VIAL IV PRN ×2 (08:11→20:32)
[2022-09-29] MEDS: InsuLIN REG 1unit/0.01ml Soln (100units/ml) SC SCH ×5 (08:14→23:29)
[2022-09-29] MEDS: ACCU-CHEK COMFORT CURVE STRIP VI SCH ×5 (08:14→23:23)
[2022-09-29 08:35] LABS: Basophils # (auto) 0.1 10 ^3/uL (0-0.2); Basophils % (auto) 1.3 % (0.0-2.0); Eosinophils # (auto) 0.1 10 ^3/uL (0-0.8); Eosinophils % (auto) 1.4 % (0.0-7.0); Hemoglobin 12.9 g/dL (12.2-16.2); Lymphocytes # (auto) 4.3 10 ^3/uL (0.4-5.4); Lymphocytes % (auto) 47.3 % (10.0-50.0); Mean Corpuscular Hemoglobin 27.2 pg (28.0-32.0); Mean Corpuscular Hgb Conc. 33.9 g/dL (32.0-36.0); Mean Corpuscular Volume 80.2 fL (80.0-100.0); Monocytes # (auto) 0.6 10 ^3/uL (0-1.3); Monocytes % (auto) 6.2 % (0.0-12.0); Neutrophils % (auto) 43.8 % (37.0-80.0); Nucleated Red Blood Cells % 0.1 %; Red Blood Cells 4.74 10^6/uL (4.0-5.20); Red Cell Distribution Width 13.3 % (11.8-14.3); White Blood Cell 9.1 10^3/uL (4.4-10.8)
[2022-09-29 08:48] LABS: INR 0.96 (0.9-1.15); Partial Thromboplastin Time 24.9 sec (24.6-33.4)
[2022-09-29] MEDS: ASPirin 81 mg TAB PO SCH (10:12)
[2022-09-29] MEDS: FAMOTIDINE (10MG/ML) 2ML VL IV SCH (10:12)
[2022-09-29] MEDS: APIXABAN 5 MG TAB PO SCH (18:00)
[2022-09-29] MEDS ORDERED: ATORVASTATIN 20 MG TAB PO SCH (22:00)
[2022-09-29] MEDS ORDERED: hydrALAZINE HCL 20 MG/ML VL IV PRN (23:00)
[2022-09-30] MEDS: MORPHINE SULFATE INJ 2 MG/ml SYRG IV PRN ×2 (02:04→08:18)
[2022-09-30 02:31] VITALS: BP 155/101
[2022-09-30] MEDS: InsuLIN REG 1unit/0.01ml Soln (100units/ml) SC SCH ×3 (04:00→11:49)
[2022-09-30] MEDS: ACCU-CHEK COMFORT CURVE STRIP VI SCH ×3 (04:06→11:47)
[2022-09-30] MEDS ORDERED: SERT-160 PO (04:11)
[2022-09-30] MEDS ORDERED: QUET1TAB11 PO (04:11)
[2022-09-30 05:00] VITALS: BP 155/96
[2022-09-30] MEDS: APIXABAN 5 MG TAB PO SCH (06:27)
[2022-09-30 06:54] LABS: Basophils # (auto) 0.1 10 ^3/uL (0-0.2); Basophils % (auto) 0.7 % (0.0-2.0); Eosinophils # (auto) 0.2 10 ^3/uL (0-0.8); Hemoglobin 12.8 g/dL (12.2-16.2); Lymphocytes # (auto) 3.7 10 ^3/uL (0.4-5.4); White Blood Cell 8.5 10^3/uL (4.4-10.8)
[2022-09-30 07:02] LABS: Hematocrit 37.7 % (36.0-46.0); Lymphocytes % (auto) 42.9 % (10.0-50.0); Mean Corpuscular Hgb Conc. 34.1 g/dL (32.0-36.0); Mean Corpuscular Volume 79.2 fL (80.0-100.0); Monocytes # (auto) 0.5 10 ^3/uL (0-1.3); Monocytes % (auto) 5.6 % (0.0-12.0); Neutrophils # (auto) 4.2 10 ^3/uL (1.6-8.6); Neutrophils % (auto) 48.8 % (37.0-80.0); Nucleated Red Blood Cells % 0.1 %; Red Blood Cells 4.75 10^6/uL (4.0-5.20); Red Cell Distribution Width 13.3 % (11.8-14.3)
[2022-09-30 07:31] LABS: Potassium 3.7 mmol/L (3.5-5.1)
[2022-09-30 07:36] LABS: Albumin 2.7 g/dL (3.4-5.0); BUN/Creatinine Ratio 12.9 (10.0-20.0); Bilirubin, Total 0.3 mg/dL (0.2-1.0); Total Protein 6.3 g/dL (6.4-8.2)
[2022-09-30 08:50] VITALS: BP 157/99
[2022-09-30] MEDS: FAMOTIDINE (10MG/ML) 2ML VL IV SCH (09:43)
[2022-09-30] MEDS: ASPirin 81 mg TAB PO SCH (09:43)
[2022-09-30] MEDS ORDERED: CLON0.1T PO (09:45)
[2022-09-30 13:00] VITALS: BP 173/118
[2022-09-30 13:27] VITALS: BP 143/82
[2022-09-30] MEDS ORDERED: MUPI2OIN2 EX (15:02)
[2022-09-30] MEDS ORDERED: MUPIROCIN 2% OINT 15gm or 22gm TOP ONE (15:15)
[2022-09-30 15:54] VITALS: BP 143/82
[2022-09-30] MEDS ORDERED: MUPIROCIN 2% OINT 15gm or 22gm FOR MRSA NARES EACHNOSTRI SCH (22:00)
== END 2022-09-30 17:16 | disposition home or self-care (01) | DRG 190 ==
LOC: ER 00:51 → EDBD 00:51 → TELE 04:47 → TELE-WESTW 23:48
PROVIDERS: ADMIT Nurse Practitioner Family; ATTEND Nurse Practitioner Family
DX: R07.89 Other chest pain (principal); I21.A1 Myocardial infarction type 2; E87.1 Hypo-osmolality and hyponatremia; E11.65 Type 2 diabetes mellitus with hyperglycemia; I11.0 Hypertensive heart disease with heart failure; I25.10 Atherosclerotic heart disease of native coronary artery without angina pectoris; I48.0 Paroxysmal atrial fibrillation; I50.22 Chronic systolic (congestive) heart failure; F41.9 Anxiety disorder, unspecified; F17.210 Nicotine dependence, cigarettes, uncomplicated; J45.909 Unspecified asthma, uncomplicated; Z80.9 Family history of malignant neoplasm, unspecified; Z81.8 Family history of other mental and behavioral disorders; Z79.01 Long term (current) use of anticoagulants; Z82.49 Family history of ischemic heart disease and other diseases of the circulatory system; Z83.3 Family history of diabetes mellitus; Z86.73 Personal history of transient ischemic attack (TIA), and cerebral infarction without residual deficits; Z88.6 Allergy status to analgesic agent; Z90.710 Acquired absence of both cervix and uterus
CPT/HCPCS: 36415; 71045; 80053; 82962; 83735; 83880; 84484; 85025; 85610; 85730; 87081; 93005; 96361; 96365; 96375; 96376; G0378; J1815; J2405; J3490

== ENCOUNTER 2022-10-31 14:57 | Inpatient (IN) | payer MEDICAID ==
[~2022-10-31] VITALS: Ht 170.2 cm; Wt 109.1 kg
[~2022-10-31 14:57] MED LIST changes: +CLON0.1T PO; +MUPI2OIN2 EX; +QUET1TAB11 PO; +SERT-160 PO
[2022-10-31] MEDS ORDERED: FUROSEMIDE 40 MG/4 ML VIAL IV ONE (16:00)
[2022-10-31] MEDS ORDERED: NITROGLYCERIN 2% OINT 1GM PKG TD ONE ×2 (16:00→19:00)
[2022-10-31] MEDS ORDERED: ASPirin 325 MG TAB PO ONE ×2 (16:00→19:00)
[2022-10-31 16:34] LABS: Albumin 3.6 g/dL (3.4-5.0); Calcium 9.2 mg/dL (8.5-10.1); Potassium 3.6 mmol/L (3.5-5.1)
[2022-10-31 16:35] LABS: INR 0.97 (0.9-1.15); Partial Thromboplastin Time 27.4 sec (24.6-33.4)
[2022-10-31 16:37] LABS: BUN/Creatinine Ratio 11.7 (10.0-20.0); Bilirubin, Total 0.6 mg/dL (0.2-1.0); Total Protein 7.9 g/dL (6.4-8.2)
[2022-10-31 16:41] LABS: Basophils # (auto) 0.1 10 ^3/uL (0-0.2); Basophils % (auto) 0.6 % (0.0-2.0); Eosinophils # (auto) 0.1 10 ^3/uL (0-0.8); Eosinophils % (auto) 1.2 % (0.0-7.0); Hemoglobin 14.3 g/dL (12.2-16.2); Lymphocytes # (auto) 4.2 10 ^3/uL (0.4-5.4); Lymphocytes % (auto) 43.2 % (10.0-50.0); Mean Corpuscular Hemoglobin 26.9 pg (28.0-32.0); Mean Corpuscular Hgb Conc. 33.3 g/dL (32.0-36.0); Mean Corpuscular Volume 80.8 fL (80.0-100.0); Monocytes # (auto) 0.6 10 ^3/uL (0-1.3); Monocytes % (auto) 5.9 % (0.0-12.0); Neutrophils # (auto) 4.8 10 ^3/uL (1.6-8.6); Neutrophils % (auto) 49.1 % (37.0-80.0); Nucleated Red Blood Cells % 0.2 %; Red Blood Cells 5.33 10^6/uL (4.0-5.20); Red Cell Distribution Width 13.6 % (11.8-14.3); White Blood Cell 9.8 10^3/uL (4.4-10.8)
[2022-10-31 19:22] LABS: Urine Bacteria NONE SEEN /hpf (None Seen); Urine Blood Negative /uL (Negative); Urine Hyaline Cast FEW /lpf (0 - 2); Urine WBC 3 /hpf (0 - 5)
[2022-10-31] MEDS ORDERED: ONDANSETRON HCL 4 MG/2 ML VIAL IV ONE (19:45)
[2022-10-31] MEDS ORDERED: MORPHINE SULFATE INJ 2 MG/ml SYRG IV ONE (19:45)
[2022-10-31] MEDS ORDERED: NITROGLYCERIN 0.4 MG SL TAB SL PRN (20:30)
[2022-10-31] MEDS ORDERED: DEXTROSE (50%) 50ML SYRG IV PRN (20:30)
[2022-10-31] MEDS ORDERED: ONDANSETRON HCL 4 MG/2 ML VIAL IV PRN (20:30)
[2022-10-31] MEDS ORDERED: ACETAMINOPHEN 325 MG TAB PO PRN (20:30)
[2022-10-31] MEDS ORDERED: IBUPROFEN 600 MG TAB PO ONE (21:30)
[2022-10-31] MEDS: ACCU-CHEK COMFORT CURVE STRIP VI SCH (21:34)
[2022-10-31] MEDS: ATORVASTATIN 20 MG TAB PO SCH (21:44)
[2022-10-31] MEDS: APIXABAN 5 MG TAB PO SCH (21:45)
[2022-10-31] MEDS: METOPROLOL TARTRATE 50 MG TAB PO SCH (21:45)
[2022-10-31] MEDS: cloNIDine HCL 0.1 MG TAB PO SCH (21:45)
[2022-10-31] MEDS: InsuLIN REG 1unit/0.01ml Soln (100units/ml) SC SCH (21:47)
[2022-11-01] VITALS (8 sets, daily range): BP systolic 97–137; BP diastolic 53–84
[2022-11-01 02:45] LABS: Urine Bacteria NONE SEEN /hpf (None Seen); Urine Blood Negative /uL (Negative); Urine Specific Gravity 1.011 (1.001-1.035); Urine WBC 1 /hpf (0 - 5)
[2022-11-01 06:18] LABS: Basophils # (auto) 0.1 10 ^3/uL (0-0.2); Basophils % (auto) 0.7 % (0.0-2.0); Eosinophils # (auto) 0.1 10 ^3/uL (0-0.8); Eosinophils % (auto) 1.7 % (0.0-7.0); Hematocrit 38.5 % (36.0-46.0); Hemoglobin 12.9 g/dL (12.2-16.2); Lymphocytes # (auto) 3.5 10 ^3/uL (0.4-5.4); Lymphocytes % (auto) 41.2 % (10.0-50.0); Mean Corpuscular Hemoglobin 27.1 pg (28.0-32.0); Mean Corpuscular Hgb Conc. 33.4 g/dL (32.0-36.0); Mean Corpuscular Volume 80.9 fL (80.0-100.0); Monocytes # (auto) 0.6 10 ^3/uL (0-1.3); Monocytes % (auto) 7.4 % (0.0-12.0); Neutrophils # (auto) 4.2 10 ^3/uL (1.6-8.6); Nucleated Red Blood Cells % 0.1 %; Red Blood Cells 4.76 10^6/uL (4.0-5.20); Red Cell Distribution Width 13.5 % (11.8-14.3); White Blood Cell 8.6 10^3/uL (4.4-10.8)
[2022-11-01] MEDS: ACCU-CHEK COMFORT CURVE STRIP VI SCH ×4 (06:31→22:22)
[2022-11-01 06:40] LABS: BUN/Creatinine Ratio 14.5 (10.0-20.0); Calcium 9.3 mg/dL (8.5-10.1); Potassium 3.6 mmol/L (3.5-5.1)
[2022-11-01] MEDS: InsuLIN REG 1unit/0.01ml Soln (100units/ml) SC SCH ×4 (06:44→22:47)
[2022-11-01] MEDS: cloNIDine HCL 0.1 MG TAB PO SCH ×2 (09:41→22:19)
[2022-11-01] MEDS: ASPirin 81 mg TAB PO SCH (09:41)
[2022-11-01] MEDS: SERTRALINE HCL 50 MG TAB PO SCH (09:42)
[2022-11-01] MEDS: APIXABAN 5 MG TAB PO SCH (09:42)
[2022-11-01] MEDS: METOPROLOL TARTRATE 50 MG TAB PO SCH ×2 (09:42→22:20)
[2022-11-01] MEDS: PANTOPRAZOLE 40 MG TAB PO SCH (09:42)
[2022-11-01] MEDS ORDERED: IOHEXOL 350 MG/ML 100ML IJ ONE (12:26)
[2022-11-01 13:38] LABS: Hepatitis C Antibody Negative (Negative)
[2022-11-01 14:09] LABS: Amphetamine Screen, Urine NEGATIVE (NEGATIVE); Barbiturate Scree,Urine NEGATIVE (NEGATIVE); Benzodiazephine Screen, Urine NEGATIVE (NEGATIVE); Cannabinoid Screen, Urine NEGATIVE (NEGATIVE)
[2022-11-01 14:26] LABS: Alcohol, Urine < 3.0 mg/dL (0-10); Cocaine Screen, Urine NEGATIVE (NEGATIVE); Opiate Scree,Urine NEGATIVE (NEGATIVE); Phencyclidine Screen, Urine NEGATIVE (NEGATIVE)
[2022-11-01] MEDS: SODIUM CHLORIDE 0.9% 1,000 ML IV SCH (17:05)
[2022-11-01] MEDS: ATORVASTATIN 20 MG TAB PO SCH (22:20)
[2022-11-01] MEDS: RANOLAZINE ER 500 MG TAB PO SCH (22:21)
[2022-11-01] MEDS: INSULIN LANTUS (GLARGINE) 1 /0.01ml (100units/ml) SC SCH (22:48)
[2022-11-02] VITALS (9 sets, daily range): BP systolic 103–165; BP diastolic 54–104
[2022-11-02] MEDS: MORPHINE SULFATE INJ 2 MG/ml SYRG IV PRN (02:00)
[2022-11-02] MEDS: SODIUM CHLORIDE 0.9% 1,000 ML IV SCH ×2 (03:35→16:55)
[2022-11-02] MEDS: ACCU-CHEK COMFORT CURVE STRIP VI SCH ×4 (06:34→21:41)
[2022-11-02] MEDS: InsuLIN REG 1unit/0.01ml Soln (100units/ml) SC SCH ×4 (06:51→21:44)
[2022-11-02 07:56] LABS: BUN/Creatinine Ratio 17.6 (10.0-20.0); Calcium 8.7 mg/dL (8.5-10.1); Potassium 3.9 mmol/L (3.5-5.1)
[2022-11-02] MEDS: SERTRALINE HCL 50 MG TAB PO SCH (10:00)
[2022-11-02] MEDS: METOPROLOL TARTRATE 50 MG TAB PO SCH ×2 (10:00→21:31)
[2022-11-02] MEDS: cloNIDine HCL 0.1 MG TAB PO SCH ×2 (10:00→21:30)
[2022-11-02] MEDS: PANTOPRAZOLE 40 MG TAB PO SCH (10:00)
[2022-11-02] MEDS: RANOLAZINE ER 500 MG TAB PO SCH ×2 (10:00→21:32)
[2022-11-02] MEDS: ASPirin 81 mg TAB PO SCH (10:46)
[2022-11-02] MEDS ORDERED: LIDOCAINE 2%HCL (LOCAL ANESTH.) INJ 20ML MDV ONE (14:41)
[2022-11-02] MEDS ORDERED: IODIXANOL 320MG/ML 100ML BTL IV ONE ×2 (14:41→15:51)
[2022-11-02] MEDS ORDERED: fentaNYL CITRATE 100 MCG/2 ML VL ONE (15:07)
[2022-11-02] MEDS ORDERED: ANGIOMAX 250 MG VIAL IV ONE ×2 (15:07→15:41)
[2022-11-02] MEDS ORDERED: VERAPAMIL 2.5MG/ML INJ 2ML VIAL IV ONE (15:07)
[2022-11-02] MEDS ORDERED: HEPARIN SODIUM (PORCINE) 5000 UNITS/ML 1ML VIAL ONE (15:07)
[2022-11-02] MEDS ORDERED: MIDAZOLAM HCL 2MG/2ML 2ml VIAL (1mg/ml) ONE (15:07)
[2022-11-02] MEDS ORDERED: SODIUM CHL 0.9% 50 ML ONE ×2 (15:08→15:41)
[2022-11-02] MEDS ORDERED: ATROPINE SULF 1 MG/10ml SYR ONE ×2 (15:23→15:59)
[2022-11-02] MEDS ORDERED: EPINEPHrine HCL 1 MG/10 ML SYRG ONE ×2 (15:23→15:59)
[2022-11-02] MEDS ORDERED: TICAGRELOR 90 MG TAB ONE (15:46)
[2022-11-02] MEDS: ATORVASTATIN 20 MG TAB PO SCH (21:31)
[2022-11-02] MEDS: INSULIN LANTUS (GLARGINE) 1 /0.01ml (100units/ml) SC SCH (21:45)
[2022-11-03] VITALS (9 sets, daily range): BP systolic 120–153; BP diastolic 63–86
[2022-11-03] MEDS: ACCU-CHEK COMFORT CURVE STRIP VI SCH ×4 (06:14→21:39)
[2022-11-03] MEDS: SODIUM CHLORIDE 0.9% 1,000 ML IV SCH ×2 (06:15→21:18)
[2022-11-03] MEDS: InsuLIN REG 1unit/0.01ml Soln (100units/ml) SC SCH ×4 (06:28→21:29)
[2022-11-03] MEDS ORDERED: CLOPIDOGREL 300 MG TAB PO ONE (08:00)
[2022-11-03] MEDS: METOPROLOL TARTRATE 50 MG TAB PO SCH ×2 (09:45→21:10)
[2022-11-03] MEDS: PANTOPRAZOLE 40 MG TAB PO SCH (09:45)
[2022-11-03] MEDS: RANOLAZINE ER 500 MG TAB PO SCH ×2 (09:46→21:09)
[2022-11-03] MEDS: SERTRALINE HCL 50 MG TAB PO SCH (09:46)
[2022-11-03] MEDS: ASPirin 81 mg TAB PO SCH (09:46)
[2022-11-03] MEDS: cloNIDine HCL 0.1 MG TAB PO SCH ×2 (09:47→21:10)
[2022-11-03] MEDS ORDERED: ASPI1CHW15 PO (11:42)
[2022-11-03] MEDS ORDERED: PANT40T PO (11:42)
[2022-11-03] MEDS ORDERED: CLOP75TA70 PO ×2 (11:42)
[2022-11-03] MEDS ORDERED: ATOR20TA50 PO (11:42)
[2022-11-03] MEDS ORDERED: MET50T PO (11:42)
[2022-11-03] MEDS ORDERED: APIX5TAB PO ×2 (11:42)
[2022-11-03] MEDS: ATORVASTATIN 20 MG TAB PO SCH (21:10)
[2022-11-03] MEDS: INSULIN LANTUS (GLARGINE) 1 /0.01ml (100units/ml) SC SCH (21:30)
[2022-11-03] MEDS: MORPHINE SULFATE INJ 2 MG/ml SYRG IV PRN (23:19)
[2022-11-04 05:00] VITALS: BP_SYST 117; BP_SYST 140; BP_DIAS 63; BP_DIAS 95
[2022-11-04] MEDS: ACCU-CHEK COMFORT CURVE STRIP VI SCH ×4 (07:03→21:20)
[2022-11-04] MEDS: InsuLIN REG 1unit/0.01ml Soln (100units/ml) SC SCH ×4 (07:06→21:22)
[2022-11-04 07:48] VITALS: BP 129/84
[2022-11-04 08:57] VITALS: BP 114/66
[2022-11-04] MEDS: SERTRALINE HCL 50 MG TAB PO SCH (09:02)
[2022-11-04] MEDS: ASPirin 81 mg TAB PO SCH (09:02)
[2022-11-04] MEDS: RANOLAZINE ER 500 MG TAB PO SCH ×2 (09:03→21:09)
[2022-11-04] MEDS: cloNIDine HCL 0.1 MG TAB PO SCH ×2 (09:03→21:10)
[2022-11-04] MEDS: PANTOPRAZOLE 40 MG TAB PO SCH (09:04)
[2022-11-04] MEDS: METOPROLOL TARTRATE 50 MG TAB PO SCH ×2 (09:04→21:09)
[2022-11-04] MEDS: CLOPIDOGREL BISULFATE 75 MG TAB PO SCH (09:04)
[2022-11-04] MEDS: SODIUM CHLORIDE 0.9% 1,000 ML IV SCH (09:06)
[2022-11-04 12:59] VITALS: BP 95/50
[2022-11-04 17:00] VITALS: BP 147/95
[2022-11-04] MEDS: MORPHINE SULFATE INJ 2 MG/ml SYRG IV PRN (19:44)
[2022-11-04] MEDS: ATORVASTATIN 20 MG TAB PO SCH (21:10)
[2022-11-04] MEDS: INSULIN LANTUS (GLARGINE) 1 /0.01ml (100units/ml) SC SCH (21:21)
[2022-11-04 22:00] VITALS: BP 169/88
[2022-11-05 05:00] VITALS: BP 129/75
[2022-11-05] MEDS: ACCU-CHEK COMFORT CURVE STRIP VI SCH ×2 (06:04→11:39)
[2022-11-05] MEDS: InsuLIN REG 1unit/0.01ml Soln (100units/ml) SC SCH ×2 (06:05→11:40)
[2022-11-05 08:01] VITALS: BP 129/84
[2022-11-05 09:00] VITALS: BP 123/78
[2022-11-05] MEDS: METOPROLOL TARTRATE 50 MG TAB PO SCH (09:12)
[2022-11-05] MEDS: cloNIDine HCL 0.1 MG TAB PO SCH (09:13)
[2022-11-05] MEDS: RANOLAZINE ER 500 MG TAB PO SCH (09:13)
[2022-11-05] MEDS: PANTOPRAZOLE 40 MG TAB PO SCH (09:13)
[2022-11-05] MEDS: SERTRALINE HCL 50 MG TAB PO SCH (09:13)
[2022-11-05] MEDS: ASPirin 81 mg TAB PO SCH (09:13)
[2022-11-05] MEDS: CLOPIDOGREL BISULFATE 75 MG TAB PO SCH (09:13)
[2022-11-05] MEDS ORDERED: CLOP75TA70 PO (11:23)
[2022-11-05] MEDS ORDERED: APIX5TAB PO ×3 (11:24→12:14)
[2022-11-05] MEDS: MORPHINE SULFATE INJ 2 MG/ml SYRG IV PRN (11:37)
[2022-11-05] MEDS ORDERED: SERT-160 PO (12:14)
[2022-11-05] MEDS ORDERED: INSUINJ37 SC (12:14)
[2022-11-05] MEDS ORDERED: QUET1TAB11 PO (12:14)
[2022-11-05] MEDS ORDERED: CLON0.1T PO (12:14)
[2022-11-05 12:31] VITALS: BP 149/90
== END 2022-11-05 17:51 | disposition home or self-care (01) | DRG 174 ==
LOC: ER 14:57 → EDUNIT# 14:57 → EDBD 14:57 → TELE 20:35 → TELE-WESTW 11-01 03:13
PROVIDERS: ADMIT Nurse Practitioner; ATTEND Hospitalist
PROC: 027035Z Dilation of Coronary Artery, One Artery with Two Drug-eluting Intraluminal Devices, Percutaneous Approach (ICD-10-PCS; principal; 2022-11-02)
PROC: 4A023N7 Measurement of Cardiac Sampling and Pressure, Left Heart, Percutaneous Approach (ICD-10-PCS; 2022-11-02)
PROC: B211YZZ Fluoroscopy of Multiple Coronary Arteries using Other Contrast (ICD-10-PCS; 2022-11-02)
PROC: B215YZZ Fluoroscopy of Left Heart using Other Contrast (ICD-10-PCS; 2022-11-02)
DX: I21.4 Non-ST elevation (NSTEMI) myocardial infarction (principal); I13.0 Hypertensive heart and chronic kidney disease with heart failure and stage 1 through stage 4 chronic kidney disease, or unspecified chronic kidney disease; E11.22 Type 2 diabetes mellitus with diabetic chronic kidney disease; I50.9 Heart failure, unspecified; E11.65 Type 2 diabetes mellitus with hyperglycemia; E66.01 Morbid (severe) obesity due to excess calories; N18.9 Chronic kidney disease, unspecified; E78.5 Hyperlipidemia, unspecified; F17.210 Nicotine dependence, cigarettes, uncomplicated; I25.10 Atherosclerotic heart disease of native coronary artery without angina pectoris; I25.2 Old myocardial infarction; I48.91 Unspecified atrial fibrillation; J45.909 Unspecified asthma, uncomplicated; Z79.01 Long term (current) use of anticoagulants; Z79.02 Long term (current) use of antithrombotics/antiplatelets; Z81.8 Family history of other mental and behavioral disorders; Z83.3 Family history of diabetes mellitus; Z86.73 Personal history of transient ischemic attack (TIA), and cerebral infarction without residual deficits; Z88.6 Allergy status to analgesic agent; Z90.710 Acquired absence of both cervix and uterus; Z91.199 Patient's noncompliance with other medical treatment and regimen due to unspecified reason; Z68.37 Body mass index [BMI] 37.0-37.9, adult
CPT/HCPCS: 36415; 71045; 71275; 80048; 80053; 80307; 81001; 81025; 82962; 83735; 83880; 84484; 85025; 85610; 85730; 86803; 86850; 86900; 86901; 87340; 92928; 92929; 93005; 93458; 96374; 96375; 99152; 99153; C1874; C1887; G0378; J1815; J2250; J2405; Q9967

== ENCOUNTER 2022-12-19 19:39 | Inpatient (IN) | payer MEDICAID ==
[~2022-12-19] VITALS: Ht 177.8 cm; Wt 116.6 kg
[~2022-12-19 19:39] MED LIST changes: -ASPI1CHW15 PO; +CLOP75TA70 PO; -MUPI2OIN2 EX; +PANT40T PO
[2022-12-19] MEDS ORDERED: ASPirin 81 mg TAB PO ONE (20:00)
[2022-12-19 20:30] LABS: Basophils # (auto) 0 10 ^3/uL (0-0.2); Basophils % (auto) 0.4 % (0.0-2.0); Eosinophils # (auto) 0.1 10 ^3/uL (0-0.8); Eosinophils % (auto) 0.9 % (0.0-7.0); Hematocrit 38.1 % (36.0-46.0); Hemoglobin 12.6 g/dL (12.2-16.2); Lymphocytes # (auto) 2.9 10 ^3/uL (0.4-5.4); Lymphocytes % (auto) 28.7 % (10.0-50.0); Mean Corpuscular Hemoglobin 27.5 pg (28.0-32.0); Mean Corpuscular Hgb Conc. 33.2 g/dL (32.0-36.0); Mean Corpuscular Volume 82.8 fL (80.0-100.0); Monocytes # (auto) 0.6 10 ^3/uL (0-1.3); Monocytes % (auto) 6.1 % (0.0-12.0); Neutrophils # (auto) 6.4 10 ^3/uL (1.6-8.6); Neutrophils % (auto) 63.9 % (37.0-80.0); Nucleated Red Blood Cells % 0.1 %; Red Cell Distribution Width 13.8 % (11.8-14.3)
[2022-12-19 20:46] LABS: INR 0.99 (0.9-1.15); Partial Thromboplastin Time 25.8 SEC (24.5-34.5)
[2022-12-19 20:47] LABS: Albumin 3.2 g/dL (3.4-5.0); BUN/Creatinine Ratio 10.9 (10.0-20.0); Calcium 8.8 mg/dL (8.5-10.1); Magnesium 2.1 mg/dL (1.6-2.6); Potassium 4.7 mmol/L (3.5-5.1)
[2022-12-19 20:58] LABS: Bilirubin, Total 0.3 mg/dL (0.2-1.0)
[2022-12-19] MEDS ORDERED: SODIUM CHLORIDE 0.9% 500 ML IV ONE (21:15)
[2022-12-19] MEDS ORDERED: InsuLIN REG 1unit/0.01ml Soln (100units/ml) IV ONE (21:15)
[2022-12-19] MEDS ORDERED: ONDANSETRON HCL 4 MG/2 ML VIAL IV PRN (23:00)
[2022-12-19] MEDS ORDERED: NITROGLYCERIN 0.4 MG SL TAB SL PRN (23:00)
[2022-12-19] MEDS ORDERED: TEMAZEPAM 15 MG CAP PO PRN (23:00)
[2022-12-19] MEDS ORDERED: DEXTROSE (50%) 50ML SYRG IV PRN (23:00)
[2022-12-19] MEDS ORDERED: cloNIDine HCL 0.1 MG TAB PO ONE (23:00)
[2022-12-19] MEDS: MORPHINE SULFATE INJ 2 MG/ml SYRG IV PRN (23:21)
[2022-12-20] MEDS: InsuLIN REG 1unit/0.01ml Soln (100units/ml) SC SCH ×6 (00:42→21:07)
[2022-12-20] MEDS: ACCU-CHEK COMFORT CURVE STRIP VI SCH ×6 (04:05→21:08)
[2022-12-20] MEDS: cloNIDine HCL 0.1 MG TAB PO SCH ×3 (06:02→21:11)
[2022-12-20] MEDS: ISOSORBIDE DINITRATE 10 MG TAB PO SCH ×3 (06:02→18:00)
[2022-12-20 06:08] LABS: Basophils # (auto) 0.1 10 ^3/uL (0-0.2); Basophils % (auto) 0.6 % (0.0-2.0); Eosinophils # (auto) 0.1 10 ^3/uL (0-0.8); Eosinophils % (auto) 1.8 % (0.0-7.0); Hematocrit 36.1 % (36.0-46.0); Hemoglobin 12.1 g/dL (12.2-16.2); Lymphocytes # (auto) 3.2 10 ^3/uL (0.4-5.4); Lymphocytes % (auto) 39.4 % (10.0-50.0); Mean Corpuscular Hemoglobin 27.1 pg (28.0-32.0); Mean Corpuscular Hgb Conc. 33.5 g/dL (32.0-36.0); Mean Corpuscular Volume 80.8 fL (80.0-100.0); Monocytes # (auto) 0.6 10 ^3/uL (0-1.3); Monocytes % (auto) 7.2 % (0.0-12.0); Neutrophils # (auto) 4.2 10 ^3/uL (1.6-8.6); Nucleated Red Blood Cells % 0.2 %; Red Blood Cells 4.47 10^6/uL (4.0-5.20); Red Cell Distribution Width 13.5 % (11.8-14.3); White Blood Cell 8.2 10^3/uL (4.4-10.8)
[2022-12-20 06:11] LABS: Potassium 3.3 mmol/L (3.5-5.1)
[2022-12-20 06:19] LABS: Albumin 2.9 g/dL (3.4-5.0); BUN/Creatinine Ratio 16.7 (10.0-20.0); Bilirubin, Total 0.2 mg/dL (0.2-1.0); Calcium 8.9 mg/dL (8.5-10.1); Total Protein 6.8 g/dL (6.4-8.2)
[2022-12-20] MEDS ORDERED: NITROGLYCERIN 50MG/250ML 250 ML IV SCH (08:00)
[2022-12-20] MEDS ORDERED: HEPARIN SODIUM (PORCINE) 5000 UNITS/ML 1ML VIAL IV ONE (08:00)
[2022-12-20] MEDS ORDERED: POTASSIUM CHL 20 Meq TABLET PO ONE (08:00)
[2022-12-20] MEDS ORDERED: HEPARIN DRIP/D5W 100UNITS/ML 250 ML IV SCH (08:00)
[2022-12-20 08:24] LABS: INR 0.97 (0.9-1.15); Partial Thromboplastin Time 25.1 SEC (24.5-34.5)
[2022-12-20] MEDS ORDERED: ASPirin 81 mg TAB PO SCH (10:00)
[2022-12-20] MEDS: CLOPIDOGREL BISULFATE 75 MG TAB PO SCH (10:57)
[2022-12-20] MEDS: PANTOPRAZOLE 40 MG TAB PO SCH (10:58)
[2022-12-20] MEDS: ASPirin 81 mg TAB PO SCH (10:58)
[2022-12-20] MEDS: METOPROLOL TARTRATE 50 MG TAB PO SCH ×2 (10:59→21:12)
[2022-12-20] MEDS: AMIODARONE HCL 200 MG TAB PO SCH ×2 (10:59→21:09)
[2022-12-20] MEDS ORDERED: HEPARIN SODIUM (PORCINE) 5000 UNITS/ML 1ML VIAL ONE (16:35)
[2022-12-20] MEDS ORDERED: ANGIOMAX 250 MG VIAL IV ONE (16:35)
[2022-12-20] MEDS ORDERED: fentaNYL CITRATE 100 MCG/2 ML VL ONE (16:35)
[2022-12-20] MEDS ORDERED: VERAPAMIL 2.5MG/ML INJ 2ML VIAL IV ONE (16:35)
[2022-12-20] MEDS ORDERED: IODIXANOL 320MG/ML 100ML BTL IV ONE (16:36)
[2022-12-20] MEDS ORDERED: LIDOCAINE 2%HCL (LOCAL ANESTH.) INJ 20ML MDV ONE (16:36)
[2022-12-20] MEDS ORDERED: SODIUM CHL 0.9% 0 ML ONE (16:36)
[2022-12-20] MEDS ORDERED: MIDAZOLAM HCL 2MG/2ML 2ml VIAL (1mg/ml) ONE (16:36)
[2022-12-20 17:18] VITALS: BP 119/85
[2022-12-20 17:23] VITALS: BP 120/65
[2022-12-20 17:38] VITALS: BP 110/72
[2022-12-20 17:53] VITALS: BP 117/78
[2022-12-20 18:08] VITALS: BP 113/71
[2022-12-20 20:17] LABS: INR 1.01 (0.9-1.15); Partial Thromboplastin Time 25.1 SEC (24.5-34.5)
[2022-12-20 22:00] VITALS: BP 129/81
[2022-12-20] MEDS ORDERED: ATORVASTATIN 20 MG TAB PO SCH ×2 (22:00)
[2022-12-21] MEDS: InsuLIN REG 1unit/0.01ml Soln (100units/ml) SC SCH ×3 (01:33→08:29)
[2022-12-21] MEDS: ACCU-CHEK COMFORT CURVE STRIP VI SCH ×3 (01:34→08:20)
[2022-12-21 05:00] VITALS: BP 130/86
[2022-12-21] MEDS: MORPHINE SULFATE INJ 2 MG/ml SYRG IV PRN ×2 (05:04→10:19)
[2022-12-21] MEDS: ISOSORBIDE DINITRATE 10 MG TAB PO SCH ×2 (06:31→12:11)
[2022-12-21] MEDS: cloNIDine HCL 0.1 MG TAB PO SCH ×2 (06:32→14:43)
[2022-12-21 08:00] VITALS: BP 137/91
[2022-12-21 09:03] VITALS: BP 137/91
[2022-12-21] MEDS ORDERED: DEXTROSE (50%) 50ML SYRG IV PRN (09:30)
[2022-12-21] MEDS: PANTOPRAZOLE 40 MG TAB PO SCH (10:19)
[2022-12-21] MEDS: CLOPIDOGREL BISULFATE 75 MG TAB PO SCH (10:19)
[2022-12-21] MEDS: ASPirin 81 mg TAB PO SCH (10:19)
[2022-12-21] MEDS: AMIODARONE HCL 200 MG TAB PO SCH (10:19)
[2022-12-21] MEDS: METOPROLOL TARTRATE 50 MG TAB PO SCH (10:19)
[2022-12-21] MEDS ORDERED: ACCU-CHEK COMFORT CURVE STRIP VI SCH (11:30)
[2022-12-21] MEDS ORDERED: InsuLIN REG 1unit/0.01ml Soln (100units/ml) SC SCH (11:30)
[2022-12-21 12:34] VITALS: BP 146/80
[2022-12-21 13:45] VITALS: BP 146/80
[2022-12-21] MEDS ORDERED: APIXABAN 5 MG TAB PO SCH (22:00)
== END 2022-12-21 15:06 | disposition home or self-care (01) | DRG 191 ==
LOC: ER 19:39 → EDBD 19:39 → TELE 23:02 → TELE-WESTW 12-20 18:44
PROVIDERS: ADMIT Nurse Practitioner; ATTEND Internal Medicine
PROC: 4A023N7 Measurement of Cardiac Sampling and Pressure, Left Heart, Percutaneous Approach (ICD-10-PCS; principal; 2022-12-20)
PROC: B211YZZ Fluoroscopy of Multiple Coronary Arteries using Other Contrast (ICD-10-PCS; 2022-12-20)
DX: I25.10 Atherosclerotic heart disease of native coronary artery without angina pectoris (principal); E11.65 Type 2 diabetes mellitus with hyperglycemia; I10 Essential (primary) hypertension; E66.01 Morbid (severe) obesity due to excess calories; E78.5 Hyperlipidemia, unspecified; I48.0 Paroxysmal atrial fibrillation; J45.909 Unspecified asthma, uncomplicated; Z80.9 Family history of malignant neoplasm, unspecified; Z79.01 Long term (current) use of anticoagulants; Z79.4 Long term (current) use of insulin; Z81.8 Family history of other mental and behavioral disorders; Z83.3 Family history of diabetes mellitus; Z87.891 Personal history of nicotine dependence; Z90.710 Acquired absence of both cervix and uterus; Z95.5 Presence of coronary angioplasty implant and graft; Z88.8 Allergy status to other drugs, medicaments and biological substances; Z68.36 Body mass index [BMI] 36.0-36.9, adult; I69.398 Other sequelae of cerebral infarction
CPT/HCPCS: 36415; 71045; 80053; 82962; 83036; 83735; 83880; 84443; 84484; 84702; 85025; 85379; 85610; 85730; 93005; 93306; 93458; 99152; G0378; J1815; J2250; Q9967

== ENCOUNTER 2023-02-04 17:02 | Inpatient (IN) | payer MEDICAID ==
[~2023-02-04] VITALS: Ht 162.6 cm; Wt 118.0 kg
[2023-02-04 18:02] LABS: Basophils # (auto) 0.1 10 ^3/uL (0-0.2); Basophils % (auto) 1.3 % (0.0-2.0); Eosinophils # (auto) 0.1 10 ^3/uL (0-0.8); Hemoglobin 12.1 g/dL (12.2-16.2); Monocytes # (auto) 0.5 10 ^3/uL (0-1.3); Neutrophils # (auto) 5.7 10 ^3/uL (1.6-8.6)
[2023-02-04 18:05] LABS: Hematocrit 36.5 % (36.0-46.0); Lymphocytes # (auto) 3.1 10 ^3/uL (0.4-5.4); Lymphocytes % (auto) 32.1 % (10.0-50.0); Mean Corpuscular Hemoglobin 26.7 pg (28.0-32.0); Mean Corpuscular Hgb Conc. 33.1 g/dL (32.0-36.0); Mean Corpuscular Volume 80.4 fL (80.0-100.0); Monocytes % (auto) 5.3 % (0.0-12.0); Neutrophils % (auto) 60.3 % (37.0-80.0); Red Blood Cells 4.54 10^6/uL (4.0-5.20); Red Cell Distribution Width 14.2 % (11.8-14.3); White Blood Cell 9.5 10^3/uL (4.4-10.8)
[2023-02-04] MEDS ORDERED: ONDANSETRON HCL 4 MG/2 ML VIAL IV ONE (18:15)
[2023-02-04] MEDS ORDERED: MORPHINE SULFATE 4 MG/ML SYR/VIAL IV ONE ×2 (18:15→23:30)
[2023-02-04 18:26] LABS: INR 0.98 (0.9-1.15); Partial Thromboplastin Time 27.2 SEC (24.5-34.5); Prothrombin Time 10.3 sec (9.3-11.8)
[2023-02-04 18:31] LABS: Albumin 3.3 g/dL (3.4-5.0); Calcium 8.9 mg/dL (8.7-10.4); Magnesium 1.9 mg/dL (1.6-2.6); Potassium 4.1 mmol/L (3.5-5.1)
[2023-02-04 18:34] LABS: Bilirubin, Total 0.2 mg/dL (0.2-1.0); Total Protein 7.1 g/dL (6.4-8.2)
[2023-02-04] MEDS ORDERED: LIDOCAINE VISCOUS 2% 15ML UD PO ONE (23:30)
[2023-02-04] MEDS ORDERED: MAALOX PLUS or MAALOX 30 ML PO ONE (23:30)
[2023-02-05] MEDS ORDERED: InsuLIN REG 1unit/0.01ml Soln (100units/ml) IV ONE (01:15)
[2023-02-05] MEDS ORDERED: METOPROLOL TARTRATE 50 MG TAB PO ONE (01:15)
[2023-02-05] MEDS ORDERED: cloNIDine HCL 0.1 MG TAB PO ONE ×2 (01:15→04:15)
[2023-02-05 01:21] VITALS: PULSE 69; RESP 69; O2SAT 99
[2023-02-05] MEDS ORDERED: ONDANSETRON HCL 4 MG/2 ML VIAL IV ONE (03:45)
[2023-02-05] MEDS ORDERED: MORPHINE SULFATE 4 MG/ML SYR/VIAL IV ONE (03:45)
[2023-02-05] MEDS ORDERED: ACETAMINOPHEN 325 MG TAB PO PRN (04:00)
[2023-02-05] MEDS ORDERED: hydrALAZINE HCL 20 MG/ML VL IV PRN (04:00)
[2023-02-05] MEDS ORDERED: NITROGLYCERIN 0.4 MG SL TAB SL PRN (04:00)
[2023-02-05] MEDS ORDERED: ALBUTEROL SULF 2.5 MG/0.5ML(0.5%) NEB SOLN NEB PRN (04:00)
[2023-02-05] MEDS ORDERED: DOCUSATE SOD 100 MG CAP PO PRN (04:00)
[2023-02-05] MEDS ORDERED: IPRATROPIUM BROM 0.5 MG/2.5ML INH SOL NEB PRN (04:00)
[2023-02-05 04:13] VITALS: BP 177/97; PULSE 73; RESP 20; O2SAT 98
[2023-02-05] MEDS ORDERED: hydrALAZINE HCL 20 MG/ML VL IV ONE (04:15)
[2023-02-05] MEDS ORDERED: cloNIDine HCL 0.1 MG TAB PO PRN (04:15)
[2023-02-05 05:09] LABS: Basophils # (auto) 0.1 10 ^3/uL (0-0.2); Eosinophils # (auto) 0.1 10 ^3/uL (0-0.8); Eosinophils % (auto) 1.5 % (0.0-7.0); Hemoglobin 12.1 g/dL (12.2-16.2); Mean Corpuscular Volume 80.3 fL (80.0-100.0); Monocytes # (auto) 0.6 10 ^3/uL (0-1.3); Red Cell Distribution Width 14.3 % (11.8-14.3)
[2023-02-05 05:11] LABS: Basophils % (auto) 0.7 % (0.0-2.0); Hematocrit 36.1 % (36.0-46.0); Lymphocytes % (auto) 40.5 % (10.0-50.0); Mean Corpuscular Hemoglobin 26.9 pg (28.0-32.0); Mean Corpuscular Hgb Conc. 33.5 g/dL (32.0-36.0); Monocytes % (auto) 5.8 % (0.0-12.0); Neutrophils # (auto) 5.1 10 ^3/uL (1.6-8.6); Neutrophils % (auto) 51.5 % (37.0-80.0); Nucleated Red Blood Cells % 0.1 %; Red Blood Cells 4.49 10^6/uL (4.0-5.20); White Blood Cell 9.9 10^3/uL (4.4-10.8)
[2023-02-05 05:50] LABS: BUN/Creatinine Ratio 16.9 (10.0-20.0); Potassium 3.5 mmol/L (3.5-5.1)
[2023-02-05 06:30] VITALS: O2SAT 95
[2023-02-05 07:25] VITALS: PULSE 66; RESP 12; O2SAT 99
[2023-02-05] MEDS: MORPHINE SULFATE INJ 2 MG/ml SYRG IV PRN ×3 (07:37→21:37)
[2023-02-05] MEDS: ONDANSETRON HCL 4 MG/2 ML VIAL IV PRN ×2 (07:37→17:27)
[2023-02-05] MEDS: CLOPIDOGREL BISULFATE 75 MG TAB PO SCH (11:02)
[2023-02-05] MEDS: ISOSORBIDE DINITRATE 10 MG TAB PO SCH ×2 (11:02→22:09)
[2023-02-05] MEDS: APIXABAN 5 MG TAB PO SCH ×2 (11:02→22:09)
[2023-02-05] MEDS: ASPirin 81 mg TAB PO SCH (11:03)
[2023-02-05] MEDS: METOPROLOL TARTRATE 50 MG TAB PO SCH ×2 (11:03→22:09)
[2023-02-05] MEDS: HYDROcodone-ACET 5/325MG TAB PO PRN (11:07)
[2023-02-05] MEDS ORDERED: NIFEdipine ER 30 MG TAB PO ONE (13:30)
[2023-02-05 18:30] LABS: Urine Bacteria NONE SEEN /hpf (None Seen); Urine Blood Negative /uL (Negative); Urine Clarity HAZY (Clear); Urine Color Colorless (Yellow); Urine Protein, UAD Negative (Negative); Urine Specific Gravity 1.015 (1.001-1.035); Urine Urobilinogen Normal (Negative); Urine WBC 2 /hpf (0 - 5); Urine pH 5.5 (5.0-8.0)
[2023-02-05 19:37] VITALS: PULSE 78; RESP 11; O2SAT 98
[2023-02-05] MEDS ORDERED: DEXTROSE (50%) 50ML SYRG IV PRN (21:45)
[2023-02-05] MEDS ORDERED: InsuLIN REG 1unit/0.01ml Soln (100units/ml) SC SCH (22:00)
[2023-02-05] MEDS: ACCU-CHEK COMFORT CURVE STRIP VI SCH (22:02)
[2023-02-05] MEDS: PANTOPRAZOLE 40 MG TAB PO SCH (22:09)
[2023-02-05 22:31] VITALS: O2SAT 99
[2023-02-06] VITALS (8 sets, daily range): BP systolic 126–142; BP diastolic 57–82; PULSE 62–82; RESP 16–21; TEMP 97.5–98.7; O2SAT 98–100
[2023-02-06] MEDS: HYDROcodone-ACET 5/325MG TAB PO PRN ×2 (02:03→15:18)
[2023-02-06 05:58] LABS: Basophils # (auto) 0 10 ^3/uL (0-0.2); Eosinophils # (auto) 0.2 10 ^3/uL (0-0.8); Hemoglobin 11.7 g/dL (12.2-16.2); Lymphocytes # (auto) 3.3 10 ^3/uL (0.4-5.4); Neutrophils # (auto) 4.6 10 ^3/uL (1.6-8.6)
[2023-02-06 06:00] LABS: Basophils % (auto) 0.4 % (0.0-2.0); Eosinophils % (auto) 1.9 % (0.0-7.0); Hematocrit 35.4 % (36.0-46.0); Lymphocytes % (auto) 38.3 % (10.0-50.0); Mean Corpuscular Hemoglobin 26.7 pg (28.0-32.0); Mean Corpuscular Hgb Conc. 33.1 g/dL (32.0-36.0); Mean Corpuscular Volume 80.7 fL (80.0-100.0); Monocytes # (auto) 0.5 10 ^3/uL (0-1.3); Monocytes % (auto) 6.3 % (0.0-12.0); Neutrophils % (auto) 53.1 % (37.0-80.0); Nucleated Red Blood Cells % 0.1 %; Red Blood Cells 4.38 10^6/uL (4.0-5.20); White Blood Cell 8.6 10^3/uL (4.4-10.8)
[2023-02-06] MEDS: ACCU-CHEK COMFORT CURVE STRIP VI SCH ×3 (06:10→18:04)
[2023-02-06 06:18] LABS: Chloride 103 mmol/L (98-107); Potassium 4.1 mmol/L (3.5-5.1); Sodium 137 mmol/L (136-145)
[2023-02-06] MEDS: InsuLIN REG 1unit/0.01ml Soln (100units/ml) SC SCH ×3 (06:18→18:29)
[2023-02-06 06:19] LABS: Calcium 9.2 mg/dL (8.7-10.4)
[2023-02-06 06:24] LABS: BUN/Creatinine Ratio 14.9 (10.0-20.0); Blood Urea Nitrogen 14 mg/dL (9-23); Glucose 314 mg/dL (74-106)
[2023-02-06] MEDS ORDERED: INSULIN LANTUS (GLARGINE) 1 /0.01ml (100units/ml) SC SCH (07:00)
[2023-02-06] MEDS: METOPROLOL TARTRATE 50 MG TAB PO SCH (08:34)
[2023-02-06] MEDS: ISOSORBIDE DINITRATE 10 MG TAB PO SCH (08:35)
[2023-02-06] MEDS: ASPirin 81 mg TAB PO SCH (08:36)
[2023-02-06] MEDS: CLOPIDOGREL BISULFATE 75 MG TAB PO SCH (08:36)
[2023-02-06] MEDS: PANTOPRAZOLE 40 MG TAB PO SCH (08:36)
[2023-02-06] MEDS: APIXABAN 5 MG TAB PO SCH (08:36)
[2023-02-06] MEDS ORDERED: NIFEdipine ER 30 MG TAB PO SCH (10:00)
[2023-02-06] MEDS ORDERED: MET50T PO (18:08)
[2023-02-06] MEDS ORDERED: CLON0.1T PO (18:08)
[2023-02-07] MEDS ORDERED: TROL10CR33 EX (15:59)
== END 2023-02-06 20:05 | disposition home or self-care (01) | DRG 199 ==
LOC: EDBD 17:02 → ER 17:02 → TELE 02-05 04:05 → TELE-EAST 02-05 23:49
PROVIDERS: ADMIT Nurse Practitioner Family; ATTEND Hospitalist
DX: I16.1 Hypertensive emergency (principal); E11.65 Type 2 diabetes mellitus with hyperglycemia; F41.1 Generalized anxiety disorder; I48.91 Unspecified atrial fibrillation; J45.909 Unspecified asthma, uncomplicated; E78.5 Hyperlipidemia, unspecified; I25.10 Atherosclerotic heart disease of native coronary artery without angina pectoris; M94.0 Chondrocostal junction syndrome [Tietze]; Z90.710 Acquired absence of both cervix and uterus; Z95.5 Presence of coronary angioplasty implant and graft; I25.2 Old myocardial infarction; Z86.73 Personal history of transient ischemic attack (TIA), and cerebral infarction without residual deficits; Z80.9 Family history of malignant neoplasm, unspecified; Z83.3 Family history of diabetes mellitus; Z87.891 Personal history of nicotine dependence; Z82.49 Family history of ischemic heart disease and other diseases of the circulatory system; Z81.8 Family history of other mental and behavioral disorders; Z79.4 Long term (current) use of insulin; Z91.199 Patient's noncompliance with other medical treatment and regimen due to unspecified reason
CPT/HCPCS: 36415; 71045; 80048; 80053; 81001; 82962; 83735; 83880; 84484; 85025; 85610; 85730; 87081; 93005; 96374; 96375; 96376; G0378; J1815; J2405

== ENCOUNTER 2023-03-23 12:46 | Inpatient (IN) | payer MEDICAID ==
[~2023-03-23] VITALS: Ht 162.6 cm; Wt 109.9 kg
[~2023-03-23 12:46] MED LIST changes: +TROL10CR33 EX
[2023-03-23 15:17] LABS: Basophils # (auto) 0.1 10 ^3/uL (0-0.2); Basophils % (auto) 0.8 % (0.0-2.0); Eosinophils # (auto) 0.1 10 ^3/uL (0-0.8); Eosinophils % (auto) 1.3 % (0.0-7.0); Hematocrit 40.1 % (36.0-46.0); Hemoglobin 13.3 g/dL (12.2-16.2); Lymphocytes # (auto) 3.4 10 ^3/uL (0.4-5.4); Lymphocytes % (auto) 39.6 % (10.0-50.0); Mean Corpuscular Hemoglobin 26.9 pg (28.0-32.0); Mean Corpuscular Hgb Conc. 33.2 g/dL (32.0-36.0); Mean Corpuscular Volume 81.1 fL (80.0-100.0); Monocytes # (auto) 0.5 10 ^3/uL (0-1.3); Monocytes % (auto) 5.4 % (0.0-12.0); Neutrophils # (auto) 4.6 10 ^3/uL (1.6-8.6); Neutrophils % (auto) 52.9 % (37.0-80.0); Red Blood Cells 4.95 10^6/uL (4.0-5.20); Red Cell Distribution Width 14.8 % (11.8-14.3); White Blood Cell 8.6 10^3/uL (4.4-10.8)
[2023-03-23 15:29] LABS: COVID19 ANTIGEN SOFIA FIA NEGATIVE (NEGATIVE); Rapid Influenza A Negative (Negative); Rapid Influenza B Negative (Negative)
[2023-03-23 15:31] LABS: Alanine Aminotransferase 15 U/L (7-40); Alkaline Phosphatase 131 U/L (46-116); Anion Gap 7 (5-15); Aspartate Aminotransferase < 8 U/L (13-40); BUN/Creatinine Ratio 9.1 (10.0-20.0); Blood Urea Nitrogen 6 mg/dL (9-23); Calcium 9.6 mg/dL (8.7-10.4); Carbon Dioxide 24 mmol/L (20-30); Chloride 105 mmol/L (98-107); Glucose 112 mg/dL (74-106); Magnesium 1.8 mg/dL (1.6-2.6); Potassium 3.7 mmol/L (3.5-5.1); Sodium 136 mmol/L (136-145)
[2023-03-23 15:32] LABS: Albumin 4.5 g/dL (3.2-4.8); Bilirubin, Total 0.4 mg/dL (0.2-1.0); Total Protein 7.6 g/dL (5.7-8.2)
[2023-03-23 15:34] LABS: INR 1.04 (0.9-1.15); Partial Thromboplastin Time 28.2 SEC (24.5-34.5); Prothrombin Time 10.9 sec (9.3-11.8)
[2023-03-23] MEDS ORDERED: KETOROLAC TROMETH 30 MG/ML 1ML VIAL IV ONE (20:15)
[2023-03-23] MEDS ORDERED: hydrALAZINE HCL 20 MG/ML VL IV ONE (20:15)
[2023-03-23] MEDS ORDERED: NITROGLYCERIN 0.4 MG SL TAB SL PRN (23:15)
[2023-03-23] MEDS ORDERED: ACETAMINOPHEN 325 MG TAB PO PRN (23:15)
[2023-03-23 23:30] VITALS: O2SAT 98
[2023-03-23] MEDS: ONDANSETRON HCL 4 MG/2 ML VIAL IV PRN (23:48)
[2023-03-23] MEDS: MORPHINE SULFATE INJ 2 MG/ml SYRG IV PRN (23:53)
[2023-03-24] MEDS: cloNIDine HCL 0.1 MG TAB PO SCH ×4 (01:06→22:17)
[2023-03-24] MEDS: HEPARIN SODIUM (PORCINE) 5000 UNITS/ML 1ML VIAL SC SCH ×3 (01:08→22:20)
[2023-03-24] MEDS: hydrALAZINE HCL 10 MG TAB PO PRN ×2 (02:33→12:00)
[2023-03-24] MEDS: HYDROcodone-ACET 5/325MG TAB PO PRN ×2 (02:40→09:19)
[2023-03-24 07:50] VITALS: O2SAT 98
[2023-03-24 09:56] LABS: Amphetamine Screen, Urine Neg (NEGATIVE); Barbiturate Scree,Urine Neg (NEGATIVE); Benzodiazephine Screen, Urine Neg (NEGATIVE); Cannabinoid Screen, Urine Pos (NEGATIVE); Cocaine Screen, Urine Neg (NEGATIVE); Opiate Scree,Urine Pos (NEGATIVE); Phencyclidine Screen, Urine Neg (NEGATIVE)
[2023-03-24] MEDS: FAMOTIDINE 20 MG TAB PO SCH (10:44)
[2023-03-24] MEDS: METOPROLOL TARTRATE 50 MG TAB PO SCH ×3 (10:50→22:18)
[2023-03-24 19:25] VITALS: PULSE 86; O2SAT 96
[2023-03-24] MEDS: ONDANSETRON HCL 4 MG/2 ML VIAL IV PRN (20:07)
[2023-03-24] MEDS: MORPHINE SULFATE INJ 2 MG/ml SYRG IV PRN (20:08)
[2023-03-24 22:13] VITALS: BP 127/64; PULSE 78; RESP 17; TEMP 98.3; O2SAT 100
[2023-03-24 23:13] VITALS: BP 127/64; PULSE 78; RESP 18; TEMP 98.3; O2SAT 100
[2023-03-25] MEDS ORDERED: AMOX250C3 PO (00:47)
[2023-03-25] MEDS ORDERED: HYDR-3682 PO (01:08)
[2023-03-25] MEDS ORDERED: FLEC1TAB PO (01:09)
[2023-03-25] MEDS ORDERED: SPIR50TA5 PO (01:11)
[2023-03-25] MEDS ORDERED: ASPI-543 PO (01:12)
[2023-03-25] MEDS ORDERED: SIMV40TA18 PO (01:13)
[2023-03-25] MEDS ORDERED: ISOS10TA2 PO (01:14)
[2023-03-25] MEDS ORDERED: INSU1INJ15 SC (01:18)
[2023-03-25] MEDS ORDERED: ALBU108A5 IN (01:20)
[2023-03-25 05:00] VITALS: BP 142/91; PULSE 72; RESP 20; TEMP 98.4; O2SAT 100
[2023-03-25 08:30] VITALS: PULSE 61; PULSE 71; RESP 18; O2SAT 99
[2023-03-25] MEDS: FAMOTIDINE 20 MG TAB PO SCH (10:11)
[2023-03-25] MEDS: ONDANSETRON HCL 4 MG/2 ML VIAL IV PRN (10:11)
[2023-03-25] MEDS: METOPROLOL TARTRATE 50 MG TAB PO SCH (10:13)
[2023-03-25] MEDS: cloNIDine HCL 0.1 MG TAB PO SCH (10:13)
[2023-03-25] MEDS: HEPARIN SODIUM (PORCINE) 5000 UNITS/ML 1ML VIAL SC SCH (10:21)
[2023-03-25] MEDS: HYDROcodone-ACET 5/325MG TAB PO PRN (10:27)
[2023-03-25 11:03] VITALS: BP 132/71; PULSE 63; RESP 17; TEMP 98.2; O2SAT 99
[2023-03-25 11:04] VITALS: BP 141/74; PULSE 76; RESP 20; TEMP 98; O2SAT 94
[2023-03-25 12:06] LABS: Hepatitis B Surface Antigen Negative (Negative)
[2023-03-25 12:27] LABS: Hepatitis C Antibody Negative (Negative)
[2023-03-25] MEDS ORDERED: DEXTROSE (50%) 50ML SYRG IV PRN (12:45)
[2023-03-25] MEDS: ACCU-CHEK COMFORT CURVE STRIP VI SCH ×2 (12:50→18:08)
[2023-03-25] MEDS: InsuLIN REG 1unit/0.01ml Soln (100units/ml) SC SCH ×2 (12:52→18:07)
[2023-03-25] MEDS ORDERED: APIXABAN 5 MG TAB PO ONE (13:30)
[2023-03-25 14:43] VITALS: BP 135/66; PULSE 60; RESP 17; TEMP 98.4; O2SAT 98
[2023-03-25] MEDS ORDERED: MUPI2OIN2 NAS (15:50)
[2023-03-26] MEDS ORDERED: ASPirin 81 mg TAB PO SCH (10:00)
== END 2023-03-25 21:15 | disposition home or self-care (01) | DRG 199 ==
LOC: ER 12:46 → EDBD 12:46 → TELE 23:09 → TELE-WESTW 03-24 20:41
PROVIDERS: ADMIT Nurse Practitioner Family; ATTEND Nurse Practitioner Family
DX: I16.0 Hypertensive urgency (principal); I48.20 Chronic atrial fibrillation, unspecified; E11.9 Type 2 diabetes mellitus without complications; E78.5 Hyperlipidemia, unspecified; B95.62 Methicillin resistant Staphylococcus aureus infection as the cause of diseases classified elsewhere; Z20.822 Contact with and (suspected) exposure to COVID-19; R51.9 Headache, unspecified; F41.9 Anxiety disorder, unspecified; R79.89 Other specified abnormal findings of blood chemistry; I10 Essential (primary) hypertension; J45.909 Unspecified asthma, uncomplicated; Z79.4 Long term (current) use of insulin; Z81.8 Family history of other mental and behavioral disorders; Z83.3 Family history of diabetes mellitus; Z86.73 Personal history of transient ischemic attack (TIA), and cerebral infarction without residual deficits; Z87.891 Personal history of nicotine dependence; Z90.710 Acquired absence of both cervix and uterus; Z91.199 Patient's noncompliance with other medical treatment and regimen due to unspecified reason
CPT/HCPCS: 36415; 70450; 71045; 80053; 80307; 82962; 83605; 83735; 83880; 84484; 84702; 85025; 85610; 85730; 86803; 87040; 87081; 87340; 87426; 87804; 93005; 93306; 96374; 96375; G0378; J1815; J1885; J2405